=== PATIENT | male | born 1945 | race Caucasian/White ===

== ENCOUNTER 2020-07-26 12:42 | Inpatient (IN) | payer MEDICARE ==
[~2020-07-26] VITALS: Ht 177.8 cm; Wt 96.5 kg
[2020-07-26 15:30] VITALS: BP 150/68
[2020-07-26] MEDS ORDERED: NS 500 ML IV ONE (16:00)
[2020-07-26] MEDS ORDERED: MOM 30ML SUSPENSION UDC PO PRN (16:00)
--- OUTSIDE RECORDS SUMMARY | 2020-07-26 16:09 | CCD | Continuity of Care Document ---
Author Author [facility] Organization Unknown Address [address] [place] [address] Phone [phone] Care Team Providers Care Mental Health Orderly Name Role Phone GARRETT [facility] AUTM [phone] Social History Type Date Description Comments Sex Unknown Medications Active Medications SIG Qnty Indications Ordering Provide r Date Flecainide Acetate 100mg Tablets [facility] Atorvastatin Calcium 20mg Tablets [facility] Losartan Potassium 50mg Tablets [facility] Pantoprazole Sodium 40mg Tablets [facility] Enoxaparin Sodium 80mg/0.8ML Solution [facility] Eliquis 5mg Tablets [facility] Metoprolol Succinate ER 25mg Tablets ER 24HR [facility] 0 Medications Administered in Office Medication SIG Qnty Indications Ordering Provider Date Technetium TC 99M Sestamibi Injection [facility] 08/06/2018 Adminstraton Fee Injection Kvng Boggs 04/14/2008 Immunizations CPT Code Status Date Vaccine Lot # [id number] Given 04/14/2008 Pneumococcal Vac ([id number]) Procedures Date Code Description Status 07/20/2020 84732 Program Pacer Dual Lead Complete d 04/02/2020 81025 Program Pacer Dual Lead Complete d 02/17/2020 87941 injection subq/im Completed Encounters Type Date Location Provider Dx Diagnosis Office Visit 04/02/2020 1:[facility] I11.9 Hypertensive heart disease without heart failure E78.5 Hyperlipidemia, unspecified I49.5 Sick sinus syndrome Z95.0 Presence of cardiac pacemake r Assessments Date Code Description Provider 07/20/2020 I49.5 Sick sinus syndrome [facility] 07/20/2020 Z95.0 Presence of cardiac pacemaker Alanis [facility] 04/02/2020 I11.9 Hypertensive heart disease witho ut heart failure [facility] 04/02/2020 E78.5 Hyperlipidemia, unspecified Kirit [facility] 04/02/2020 I49.5 Sick sinus syndrome [facility] 04/02/2020 Z95.0 Presence of cardiac pacemaker [facility] 02/17/2020 I48.0 Paroxysmal atrial fibrillation Broderick [facility] Plan of Treatment Future Appointment(s):* 10/22/2020 3:00 pm - Garrett [facility] at [facility]
--- OUTSIDE RECORDS SUMMARY | 2020-07-26 16:09 | CCD | Continuity of Care Document ---
Author Author Santos [facility] Organization Unknown Address [address] [place] [address] [place] [address] Phone [phone] Care Team Providers Care Survey Research Associate Name Role Phone Mirza. Bruno Villanueva AUTM [phone] Efrain Olga Publi AUTM [phone] Problems Description No Information Available Social History Type Date Description Comments Sex Unknown Allergies, Adverse Reactions, Alerts Description No Information Available Medications Description No Information Available Immunizations Description No Information Available Vital Signs Description No Information Available Results Description No Information Available Procedures Description No Information Available Medical Devices Description No Information Available Encounters Description No Information Available Assessments Date Code Description Provider 05/08/2020 Z20.828 Contact with and (foster spected) exposure to other viral communicable diseases MADI Patterson 04/27/2020 Z20.828 Contact with and (foster spected) exposure to other viral communicable diseases MADI Patterson Plan of Treatment No Information Available Functional Status Description No Information Available Mental Status Description No Information Available Referrals Description No Information Available
--- OUTSIDE RECORDS SUMMARY | 2020-07-26 16:09 | CCD | Continuity of Care Document ---
Author Author [facility] Organization Unknown Address [address] [place] [address] Phone [phone] Care Team Providers Care Chief Mate Name Role Phone GARRETT [facility] AUTM [phone] Social History Type Date Description Comments Sex Unknown Medications Active Medications SIG Qnty Indications Ordering Provide r Date Flecainide Acetate 100mg Tablets [facility] Atorvastatin Calcium 20mg Tablets [facility] Losartan Potassium 50mg Tablets [facility] Pantoprazole Sodium 40mg Tablets [facility] Enoxaparin Sodium 80mg/0.8ML Solution [facility] Eliquis 5mg Tablets [facility] Metoprolol Succinate ER 25mg Tablets ER 24HR [facility] 0 Medications Administered in Office Medication SIG Qnty Indications Ordering Provider Date Technetium TC 99M Sestamibi Injection [facility] 08/06/2018 Adminstraton Fee Injection Kvng Boggs 04/14/2008 Immunizations CPT Code Status Date Vaccine Lot # [id number] Given 04/14/2008 Pneumococcal Vac ([id number]) Procedures Date Code Description Status 04/02/2020 49002 Program Pacer Dual Lead Complete d 02/17/2020 92731 injection subq/im Completed Encounters Type Date Location Provider Dx Diagnosis Office Visit 04/02/2020 1:30p [facility] I11.9 Hypertensive heart disease without heart failure E78.5 Hyperlipidemia, unspecified I49.5 Sick sinus syndrome Z95.0 Presence of cardiac pacemake r Assessments Date Code Description Provider 04/02/2020 I11.9 Hypertensive heart disease witho ut heart failure [facility] 04/02/2020 E78.5 Hyperlipidemia, unspecified Kirit [facility] 04/02/2020 I49.5 Sick sinus syndrome [facility] 04/02/2020 Z95.0 Presence of cardiac pacemaker Alanis [facility] 02/17/2020 I48.0 Paroxysmal atrial fibrillation Broderick [facility]
--- OUTSIDE RECORDS SUMMARY | 2020-07-26 16:09 | CCD | Continuity of Care Document ---
Author Author Santos [facility] Organization Unknown Address [address] [place] [address] Phone [phone] Care Team Providers Care Manager Pediatric Name Role Phone Mirza. Bruno Villanueva AUTM [phone] Efrain Olga Publi AUTM [phone] Problems Description No Information Available Social History Type Date Description Comments Sex Unknown Allergies, Adverse Reactions, Alerts Description No Information Available Medications Description No Information Available Immunizations Description No Information Available Vital Signs Description No Information Available Results Description No Information Available Procedures Description No Information Available Medical Devices Description No Information Available Encounters Description No Information Available Assessments Date Code Description Provider 04/27/2020 Z20.828 Contact with and (foster spected) exposure to other viral communicable diseases MADI Patterson Plan of Treatment No Information Available Functional Status Description No Information Available Mental Status Description No Information Available Referrals Description No Information Available
--- OUTSIDE RECORDS SUMMARY | 2020-07-26 16:09 | CCD | Continuity of Care Document ---
Author Author Santos [facility]NO Organization Unknown Address [address] [place] [address] [place] [address] Phone [phone] Care Team Providers Care Finisher Polisher Name Role Phone Mirza. Bruno Villanueva AUTM [phone] Efrain Olga Publi AUTM [phone] Problems Description No Information Available Social History [...]
--- OUTSIDE RECORDS SUMMARY | 2020-07-26 16:09 | CCD | Continuity of Care Document ---
Author Author Santos [facility] Organization Unknown Address [address] [place] [address] [place] [address] Phone [phone] Care Team Providers Care Sales Management Intern Name Role Phone Mirza. Bruno Villanueva AUTM [phone] Efrain Espinoza Publi AUTM [phone] Problems Description No Information Available Social History Type Date Description Comments Sex Unknown Allergies, Adverse Reactions, Alerts Description No Information Available Medications Description No Information Available Immunizations Description No Information Available Vital Signs Description No Information Available Results Description No Information Available Procedures Description No Information Available Medical Devices Description No Information Available Encounters Description No Information Available Assessments Description No Information Available Plan of Treatment No Information Available Functional Status Description No Information Available Mental Status Description No Information Available Referrals Description No Information Available
--- OUTSIDE RECORDS SUMMARY | 2020-07-26 16:10 | CCD ---
Author Author [facility] Organization [facility] Address Unknown Phone Unavailable Care Team Providers Care Plc Engineer Name Role Phone Hayley LIMON Unavailable Unavailable HECTORTOMMY MD Unavailable Unavailable HECTOR MAQBOFLORES CUELLO MD Unavailable Unavailable HECTOR MAQBOFLORES CUELLO MD Unavailable Unavailable HECTOR MAQBOFLORES CUELLO MD Unavailable Unavailable HECTORKIMBERLYQBOFLORES CUELLO MD Unavailable Unavailable HECTORKIMBERLYQBOFLORES CUELLO MD Unavailable Unavailable HECTOR MAQBOFLORES CUELLO MD Unavailable Unavailable HECTOR MAQBOOL KHUSHBOO MORALES Unavailable Unavailable HECTORMARKBOFLORES CUELLO MD Unavailable Unavailable HECTORMARKBOFLORES CUELLO MD Unavailable Unavailable HECTORKIMBERLYQBOFLORES CUELLO MD Unavailable Unavailable HECTOR MAQBOOL KHUSHBOO MORALES Unavailable Unavailable HECTOR MAQBOFLOERS CUELLO MD Unavailable Unavailable HECTORKIMBERLYQBOFLORES CUELLO MD Unavailable Unavailable HECTORKIMBERLYQBOFLORES CUELLO MD Unavailable Unavailable HECTOR MAQBOOL KHUSHBOO MORALES Unavailable Unavailable HECTOR MAQBOOL KHUSHBOO MORALES Unavailable Unavailable HECTOR MAQBOOL KHUSHBOO MORALES Unavailable Unavailable HECTOR MAQBOFLORES CUELLO MD Unavailable Unavailable HECTOR MAQBOFLORES CUELLO MD Unavailable Unavailable HECTOR MAQBOFLORES CUELLO MD Unavailable Unavailable HECTOR MAQBOFLORES CUELLO MD Unavailable Unavailable HECTOR MAQBOOL KHUSHBOO MORALES Unavailable Unavailable HECTOR MAQBOFLORES CUELLO MD Unavailable Unavailable HECTOR MAQBOOL KHUSHBOO MORALES Unavailable Unavailable HECTOR, MAQBOOL KHUSHBOO MD Unavailable Unavailable HECTOR, MAQBOOL KHUSHBOO MD Unavailable Unavailable HECTOR, MAQBOOL KHUSHBOO MD Unavailable Unavailable HECTOR, MAQBOOL KHUSHBOO MD Unavailable Unavailable HECTOR, MAQBOOL KHUSHBOO MD Unavailable Unavailable HECTOR, MAQBOOL KHUSHBOO MD Unavailable Unavailable HECTOR, MAQBOOL KHUSHBOO MD Unavailable Unavailable HECTOR, MAQBOOL KHUSHBOO MD Unavailable Unavailable HECTOR, MAQBOOL KHUSHBOO MD Unavailable Unavailable HECTOR, MAQBOOL KHUSHBOO MD Unavailable Unavailable HECTOR, MAQBOOL KHUSHBOO MD Unavailable Unavailable HECTOR, MAQBOOL KHUSHBOO MD Unavailable Unavailable HECTOR, MAQBOOL KHUSHBOO MD Unavailable Unavailable HECTOR, MAQBOOL KHUSHBOO MD Unavailable Unavailable HECTOR, MAQBOOL KHUSHBOO MD Unavailable Unavailable HECTOR, MAQBOOL KHUSHBOO MD Unavailable Unavailable HECTOR, MAQBOOL KHUSHBOO MD Unavailable Unavailable HECTOR, MAQBOOL KHUSHBOO MD Unavailable Unavailable HECTOR, MAQBOOL KHUSHBOO MD Unavailable Unavailable HECTOR, MAQBOOL KHUSHBOO MD Unavailable Unavailable HECTOR, MAQBOOL KHUSHBOO MD Unavailable Unavailable HECTOR, MAQBOOL KHUSHBOO MD Unavailable Unavailable HECTOR, MAQBOOL KHUSHBOO MD Unavailable Unavailable HECTOR, MAQBOOL KHUSHBOO MD Unavailable Unavailable HECTOR, MAQBOOL KHUSHBOO MD Unavailable Unavailable HECTOR, MAQBOOL KHUSHBOO MD Unavailable Unavailable HECTOR, MAQBOOL KHUSHBOO MD Unavailable Unavailable HECTOR, MAQBOOL KHUSHBOO MD Unavailable Unavailable HECTOR, MAQBOOL KHUSHBOO MD Unavailable Unavailable HECTOR, MAQBOOL KHUSHBOO MD Unavailable Unavailable HECTOR, MAQBOOL KHUSHBOO MD Unavailable Unavailable HECTOR, MAQBOOL KHUSHBOO MD Unavailable Unavailable HECTOR, MAQBOOL KHUSHBOO MD Unavailable Unavailable HECTOR, MAQBOOL KHUSHBOO MD Unavailable Unavailable HECTOR, MAQBOOL KHUSHBOO MD Unavailable Unavailable HECTOR, MAQBOOL KHUSHBOO MD Unavailable Unavailable HECTOR, MAQBOOL KHUSHBOO MD Unavailable Unavailable HECTOR, MAQBOOL KHUSHBOO MD Unavailable Unavailable HECTOR, MAQBOOL KHUSHBOO MD Unavailable Unavailable HECTOR, MAQBOOL KHUSHBOO MD Unavailable Unavailable HECTOR, MAQBOOL KHUSHBOO MD Unavailable Unavailable HECTOR, MAQBOOL KHUSHBOO MD Unavailable Unavailable HECTOR, MAQBOOL KHUSHBOO MD Unavailable Unavailable HECTOR, MAQBOOL KHUSHBOO MD Unavailable Unavailable HECTOR, MAQBOOL KHUSHBOO MD Unavailable Unavailable HECTOR, MAQBOOL KHUSHBOO MD Unavailable Unavailable HECTOR, MAQBOOL KHUSHBOO MD Unavailable Unavailable HECTOR, MAQBOOL KHUSHBOO MD Unavailable Unavailable HECTOR, MAQBOOL KHUSHBOO MD Unavailable Unavailable OBEN, T CHIP MD Unavailable Unavailable OBEN, T CHIP MD Unavailable Unavailable OBEN, T CHIP MD Unavailable Unavailable OBEN, T CHIP MD Unavailable Unavailable OBEN, T CHIP MD Unavailable Unavailable OBEN, T CHIP MD Unavailable Unavailable OBEN, T CHIP MD Unavailable Unavailable OBEN, T CHIP MD Unavailable Unavailable OBEN, T CHIP MD Unavailable Unavailable OBEN, T CHIP MD Unavailable Unavailable OBEN, T CHIP MD Unavailable Unavailable OBEN, T CHIP MD Unavailable Unavailable OBEN, T CHIP MD Unavailable Unavailable OBEN, T CHIP MD Unavailable Unavailable OBEN, T CHIP MD Unavailable Unavailable OBEN, T CHIP MD Unavailable Unavailable OBEN, T CHIP MD Unavailable Unavailable OBEN, T CHIP MD Unavailable Unavailable OBEN, T CHIP MD Unavailable Unavailable OBEN, T CHIP MD Unavailable Unavailable OBEN, T CHIP MD Unavailable Unavailable OBEN, T CHIP MD Unavailable Unavailable OBEN, T CHIP MD Unavailable Unavailable OBEN, T CHIP MD Unavailable Unavailable OBEN, T CHIP MD Unavailable Unavailable OBEN, T CHIP MD Unavailable Unavailable OBEN, T CHIP MD Unavailable Unavailable OBEN, T CHIP MD Unavailable Unavailable OBEN, T CHIP MD Unavailable Unavailable OBEN, T CHIP MD Unavailable Unavailable OBEN, T CHIP MD Unavailable Unavailable OBEN, T CHIP MD Unavailable Unavailable OBEN, T CHIP MD Unavailable Unavailable OBEN, T CHIP MD Unavailable Unavailable OBEN, T CHIP MD Unavailable Unavailable OBEN, T CHIP MD Unavailable Unavailable OBEN, T CHIP MD Unavailable Unavailable OBEN, T CHIP MD Unavailable Unavailable OBEN, T CHIP MD Unavailable Unavailable OBEN, T CHIP MD Unavailable Unavailable OBEN, T CHIP MD Unavailable Unavailable OBEN, T CHIP MD Unavailable Unavailable OBEN, T CHIP MD Unavailable Unavailable OBEN, T CHIP MD Unavailable Unavailable OBEN, T CHIP MD Unavailable Unavailable OBEN, T CHIP MD Unavailable Unavailable OBEN, T CHIP MD Unavailable Unavailable OBEN, T CHIP MD Unavailable Unavailable OBEN, T CHIP MD Unavailable Unavailable OBEN, T CHIP MD Unavailable Unavailable OBEN, T CHIP MD Unavailable Unavailable OBEN, T CHIP MD Unavailable Unavailable OBEN, T CHIP MD Unavailable Unavailable HECTOR, MAQBOOL KHUSHBOO MD Unavailable Unavailable HECTOR, MAQBOOL KHUSHBOO MD Unavailable Unavailable HECTOR, MAQBOOL KHUSHBOO MD Unavailable Unavailable HECTOR, MAQBOOL KHUSHBOO MD Unavailable Unavailable HECTOR, MAQBOOL KHUSHBOO MD Unavailable Unavailable HECTOR, MAQBOOL KHUSHBOO MD Unavailable Unavailable HECTOR, MAQBOOL KHUSHBOO MD Unavailable Unavailable HECTOR, MAQBOOL KHUSHBOO MD Unavailable Unavailable HECTOR, MAQBOOL KHUSHBOO MD Unavailable Unavailable HECTOR, MAQBOOL KHUSHBOO MD Unavailable Unavailable HECTOR, MAQBOOL KHUSHBOO MD Unavailable Unavailable HECTOR, MAQBOOL KHUSHBOO MD Unavailable Unavailable HECTOR, MAQBOOL KHUSHBOO MD Unavailable Unavailable HECTOR, MAQBOOL KHUSHBOO MD Unavailable Unavailable HECTOR, MAQBOOL KHUSHBOO MD Unavailable Unavailable HECTOR, MAQBOOL KHUSHBOO MD Unavailable Unavailable HECTOR, MAQBOOL KHUSHBOO MD Unavailable Unavailable HECTOR, MAQBOOL KHUSHBOO MD Unavailable Unavailable HECTOR, MAQBOOL KHUSHBOO MD Unavailable Unavailable HECTOR, MAQBOOL KHUSHBOO MD Unavailable Unavailable HECTOR, MAQBOOL KHUSHBOO MD Unavailable Unavailable HECTOR, MAQBOOL KHUSHBOO MD Unavailable Unavailable HECTOR, MAQBOOL KHUSHBOO MD Unavailable Unavailable HECTOR, MAQBOOL KHUSHBOO MD Unavailable Unavailable HECTOR, MAQBOOL KHUSHBOO MD Unavailable Unavailable HECTOR, MAQBOOL KHUSHBOO MD Unavailable Unavailable HECTOR, MAQBOOL KHUSHBOO MD Unavailable Unavailable HECTOR, MAQBOOL KHUSHBOO MD Unavailable Unavailable HECTOR, MAQBOOL KHUSHBOO MD Unavailable Unavailable HECTOR, MAQBOOL KHUSHBOO MD Unavailable Unavailable HECTOR, MAQBOOL KHUSHBOO MD Unavailable Unavailable HECTOR, MAQBOOL KHUSHBOO MD Unavailable Unavailable HECTOR, MAQBOOL KHUSHBOO MD Unavailable Unavailable HECTOR, MAQBOOL KHUSHBOO MD Unavailable Unavailable HECTOR, MAQBOOL KHUSHBOO MD Unavailable Unavailable HECTOR, MAQBOOL KHUSHBOO MD Unavailable Unavailable HECTOR, MAQBOOL KHUSHBOO MD Unavailable Unavailable HECTOR, MAQBOOL KHUSHBOO MD Unavailable Unavailable HECTOR, MAQBOOL KHUSHBOO MD Unavailable Unavailable HECTOR, MAQBOOL KHUSHBOO MD Unavailable Unavailable HECTOR, MAQBOOL KHUSHBOO MD Unavailable Unavailable HECTOR, MAQBOOL KHUSHBOO MD Unavailable Unavailable HECTOR, MAQBOOL KHUSHBOO MD Unavailable Unavailable HECTOR, MAQBOOL KHUSHBOO MD Unavailable Unavailable HECTOR, MAQBOOL KHUSHBOO MD Unavailable Unavailable HECTOR, MAQBOOL KHUSHBOO MD Unavailable Unavailable HECTOR, MAQBOOL KHUSHBOO MD Unavailable Unavailable HECTOR, MAQBOOL KHUSHBOO MD Unavailable Unavailable HECTOR, MAQBOOL KHUSHBOO MD Unavailable Unavailable HECTOR, MAQBOOL KHUSHBOO MD Unavailable Unavailable HECTOR, MAQBOOL KHUSHBOO MD Unavailable Unavailable HECTOR, MAQBOOL KHUSHBOO MD Unavailable Unavailable HECTOR, MAQBOOL KHUSHBOO MD Unavailable Unavailable HECTOR, MAQBOOL KHUSHBOO MD Unavailable Unavailable HECTOR, MAQBOOL KHUSHBOO MD Unavailable Unavailable HECTOR, MAQBOOL KHUSHBOO MD Unavailable Unavailable HECTOR, MAQBOOL KHUSHBOO MD Unavailable Unavailable HECTOR, MAQBOOL KHUSHBOO MD Unavailable Unavailable HECTOR, MAQBOOL KHUSHBOO MD Unavailable Unavailable HECTOR, MAQBOOL KHUSHBOO MD Unavailable Unavailable HECTOR, MAQBOOL KHUSHBOO MD Unavailable Unavailable HECTOR, MAQBOOL KHUSHBOO MD Unavailable Unavailable HECTOR, MAQBOOL KHUSHBOO MD Unavailable Unavailable HECTOR, MAQBOOL KHUSHBOO MD Unavailable Unavailable HECTOR, MAQBOOL KHUSHBOO MD Unavailable Unavailable HECTOR, MAQBOOL KHUSHBOO MD Unavailable Unavailable HECTOR, MAQBOOL KHUSHBOO MD Unavailable Unavailable HECTOR, MAQBOOL KHUSHBOO MD Unavailable Unavailable HECTOR, MAQBOOL KHUSHBOO MD Unavailable Unavailable HECTOR, MAQBOOL KHUSHBOO MD Unavailable Unavailable HECTOR, MAQBOOL KHUSHBOO MD Unavailable Unavailable HECTOR, MAQBOOL KHUSHBOO MD Unavailable Unavailable HECTOR, MAQBOOL KHUSHBOO MD Unavailable Unavailable HECTOR, MAQBOOL KHUSHBOO MD Unavailable Unavailable LISANDRO, S AYMAN MD Unavailable Unavailable LISANDRO, S AYMAN MD Unavailable Unavailable LISANDRO, S AYMAN MD Unavailable Unavailable LISANDRO, S AYMAN MD Unavailable Unavailable LISANDRO, S AYMAN MD Unavailable Unavailable LISANDRO, S AYMAN MD Unavailable Unavailable LISANDRO, S AYMAN MD Unavailable Unavailable LISANDRO, S AYMAN MD Unavailable Unavailable LISANDRO, S AYMAN MD Unavailable Unavailable LISANDRO, S AYMAN MD Unavailable Unavailable LISANDRO, S AYMAN MD Unavailable Unavailable LISANDRO, S AYMAN MD Unavailable Unavailable LISANDRO, S AYMAN MD Unavailable Unavailable LISANDRO S AYMAN MD Unavailable Unavailable LISANDRO S AYMAN MD Unavailable Unavailable LISANDRO S AYMAN MD Unavailable Unavailable LISANDRO S AYMAN MD Unavailable Unavailable LISANDRO, S AYMAN MD Unavailable Unavailable LISANDRO S AYMAN MD Unavailable Unavailable LISANDRO S AYMAN MD Unavailable Unavailable LISANDRO S AYMAN MD Unavailable Unavailable LISANDRO S AYMAN MD Unavailable Unavailable LISANDRO S AYMAN MD Unavailable Unavailable LISANDRO, S AYMAN MD Unavailable Unavailable LISANDRO S AYMAN MD Unavailable Unavailable LISANDRO S AYMAN MD Unavailable Unavailable LISANDRO S AYMAN MD Unavailable Unavailable LISANDRO, S AYMAN MD Unavailable Unavailable LISANDRO, S AYMAN MD Unavailable Unavailable LISANDRO, S AYMAN MD Unavailable Unavailable LISANDRO, S AYMAN MD Unavailable Unavailable LISANDRO, S AYMAN MD Unavailable Unavailable LISANDRO, S AYMAN MD Unavailable Unavailable LISANDRO, S AYMAN MD Unavailable Unavailable LISANDRO, S AYMAN MD Unavailable Unavailable LISANDRO, S AYMAN MD Unavailable Unavailable LISANDRO, S AYMAN MD Unavailable Unavailable LISANDRO, S AYMAN MD Unavailable Unavailable LISANDRO, S AYMAN MD Unavailable Unavailable LISANDRO, S AYMAN MD Unavailable Unavailable LISANDRO, S AYMAN MD Unavailable Unavailable LISANDRO, S AYMAN MD Unavailable Unavailable LISANDRO, S AYMAN MD Unavailable Unavailable LISANDRO, S AYMAN MD Unavailable Unavailable LISANDRO, S AYMAN MD Unavailable Unavailable LISANDRO, S AYMAN MD Unavailable Unavailable LISANDRO, S AYMAN MD Unavailable Unavailable LISANDRO, S AYMAN MD Unavailable Unavailable LISANDRO, S AYMAN MD Unavailable Unavailable LISANDRO, S AYMAN MD Unavailable Unavailable LISANDRO, S AYMAN MD Unavailable Unavailable LISANDRO, S AYMAN MD Unavailable Unavailable LISANDRO, S AYMAN MD Unavailable Unavailable LISANDRO, S AYMAN MD Unavailable Unavailable LISANDRO, S AYMAN MD Unavailable Unavailable LISANDRO, S AYMAN MD Unavailable Unavailable LISANDRO, S AYMAN MD Unavailable Unavailable LISANDRO, S AYMAN MD Unavailable Unavailable LISANDRO, S AYMAN MD Unavailable Unavailable LISANDRO, S AYMAN MD Unavailable Unavailable LISANDRO, S AYMAN MD Unavailable Unavailable LISANDRO, S AYMAN MD Unavailable Unavailable LISANDRO, S AYMAN MD Unavailable Unavailable LISANDRO, S AYMAN MD Unavailable Unavailable LISANDRO, S AYMAN MD Unavailable Unavailable LISANDRO, S AYMAN MD Unavailable Unavailable LISANDRO, S AYMAN MD Unavailable Unavailable LISANDRO, S AYMAN MD Unavailable Unavailable LISANDRO, S AYMAN MD Unavailable Unavailable LISANDRO, S AYMAN MD Unavailable Unavailable LISANDRO, S AYMAN MD Unavailable Unavailable LISANDRO, S AYMAN MD Unavailable Unavailable LISANDRO, S AYMAN MD Unavailable Unavailable LISANDRO, S AYMAN MD Unavailable Unavailable LISANDRO, S AYMAN MD Unavailable Unavailable LISANDRO, S AYMAN MD Unavailable Unavailable LISANDRO, S AYMAN MD Unavailable Unavailable LISANDRO, S AYMAN MD Unavailable Unavailable LISANDRO, S AYMAN MD Unavailable Unavailable LISANDRO, S AYMAN MD Unavailable Unavailable LISANDRO, S AYMAN MD Unavailable Unavailable LISANDRO, S AYMAN MD Unavailable Unavailable Maring, Phillip PA Unavailable Unavailable Maring, Phillip PA Unavailable Unavailable Maring, Phillpi PA Unavailable Unavailable Maring, Phillip PA Unavailable Unavailable Maring, Phillip PA Unavailable Unavailable Maring, Phillip PA Unavailable Unavailable Maring, Phillip PA Unavailable Unavailable Maring, Phillip PA Unavailable Unavailable Maring, Phillip PA Unavailable Unavailable Maring, Phillip PA Unavailable Unavailable Maring, Phillip PA Unavailable Unavailable Maring, Phillip PA Unavailable Unavailable Maring, Phillip PA Unavailable Unavailable Maring, Phillip PA Unavailable Unavailable Re-disclosure Warning The records that you are about to access may contain information from federally-assisted alcohol or drug abuse programs. If such information is present, then the following federally mandated warning applies: This information has been disclosed to you from records protected by federal confidentiality rules (42 CFR part 2). The federal rules prohibit you from making any further disclosure of this information unless further disclosure is expressly permitted by the written consent of the person to whom it pertains or as otherwise permitted by 42 CFR part 2. A general authorization for the release of medical or other information is NOT sufficient for this purpose. The Federal rules restrict any use of the information to criminally investigate or prosecute any alcohol or drug abuse patient.The records that you are about to access may contain highly sensitive health information, the redisclosure of which is protected by Article 27-F of the [facility] Public Health law. If you continue you may have access to information: Regarding HIV / AIDS; Provided by facilities licensed or operated by the [facility] Office of Mental Health; or Provided by the [facility] Office for People With Developmental Disabilities. If such information is present, then the following [facility] mandated warning applies: This information has been disclosed to you from confidential records which are protected by state law. State law prohibits you from making any further disclosure of this information without the specific written consent of the person to whom it pertains, or as otherwise permitted by law. Any unauthorized further disclosure in violation of state law may result in a fine or chcf sentence or both. A general authorization for the release of medical or other information is NOT sufficient authorization for further disc losure. Allergies and Adverse Reactions Type Description Substance Reaction Status Data Source(s ) No Known Drug Allergies No Known Drug Allergies [facility] ENVIRONMENTAL pollen pollen [facility] Family History Family Member Name Family Member Gender Family Member Status Date o f Status Description Data Source(s) Unknown Male Problem [facility] ([facility]) Encounters Encounter Providers Location Date Indications Data Source(s ) Emergency Attender: RUBY GORDONECCOConsultant: KHUSHBOO DUNCAN MD 07/26/2020 09:09:00 AM EST - 07/26/2020 02:45:00 PM [facility] Patient discharged. Outpatient Attender: Phillip BARRAZA 07/21/19 05:43:42 PM EST - 07/21/2020 06:35:51 PM EST [facility] ([facility] ) Outpatient Attender: CHIP ZACARIAS MDConsultant: KHUSHBOO VILLANUEVA MD 04/10/2020 08:12:00 AM EST - 04/10/2020 08:12:00 AM [facility] Outpatient Attender: KHUSHBOO VILLANUEVA MD Medical [facility] 04/02 01:30:00 PM EDT [facility] ([facility]ushboo Villanueva MD) Outpatient Attender: KHUSHBOO VILLANUEVA MDConsultant: KHUSHBOO Hadley MD 09/29/2019 03:28:00 PM EDT - 09/29/2019 04:28:00 PM EDT [facility] Inpatient<td>08/17/2018 - 08/18/2018</td ><td ID="[id number]">Hospital Encounter</td><td><paragraph>D[facility] Cardiovascular Surgery Unit</paragraph><paragraph>[address]</paragraph><paragraph>[place] [address]</paragraph><paragraph>[phone]</paragraph></td><td><paragraph styleCode="Bold">Betty Szymanski MD</paragraph><paragraph>[address]paragraph><paragraph>[address]</paragraph><paragraph>[place] [address]</paragraph><paragraph>[phone]</paragraph><paragraph> </paragraph></td><td ID="[id number]">Unstable angina (Primary Dx); <b r/>Essential hypertension</td> Attender: BETTY SZYMANSKI MDAdmitter: ANA SZYMANSKI MD [id number] 08/17/2018 12:00:00 AM EDT - 08/18/2018 05:44:00 PM EDT GERD (gastroesophageal reflux disease)HTN (hypertension)History of permanent cardiac pacemaker placementTypical atrial flutterEssential hypertensionUnstable angina [facility] GERD (gastroesophageal reflux disease) HTN (hypertension) History of permanent cardiac pacemaker p lacement Typical atrial flutter Essential hypertension Unstable angina Unstable angina (Primary Dx); Essential hypertension Medications Medication Brand Name Start Date Product Form Dose Route Admi nistrative Instructions Pharmacy Instructions Status Indications Reaction Description Data Source(s) 10 mg 04/19/2020 12:00:00 AM EST tablet extended release 24hr 30 TAKE ONE TABLET BY MOUTH EVERY DAY TAKE ONE TABLET BY MOUTH EVERY DAY SOLD: 04/20/2020 [facility] Insurance Providers Payer name Policy type / Coverage type Policy ID Covered constitution party ID Covered constitution party's relationship to land Policy Land Plan Information MEDICARE COMPLETE [id number] SP [id number] [employer] [facility] MEDICARE O/P [id number] 18 [id number] MEDICARE COMPLETE [id number] SP [id number] [facility] Commercial Insurance Co. [id number] Self [id number] [facility] [place] [id number] 18 [id number] [facility] MEDICARE [id number] Mary [id number] [facility] [employer] [place] [id number] 18 [id number] [employer] [facility] MEDICARE O/P [id number] 18 [id number] [facility] Secure Horizons MCR Commercial [id number] Self [id number] [facility] [employer] [place] [id number] 18 [id number] [employer]/[facility] MEDICARE I/P [id number] 18 [id number] [employer]/UN MEDICARE I/P [id number] 18 [id number] MEDICARE PART A -I/P [id number] 18 [id number] [facility] MEDICARE [id number] Mary [id number] [facility] MEDICARE PI PI MEDICARE COMPLETE [id number] SP [id number] Problems, Conditions, and Diagnoses Code Display Name Description Problem Type Effective Dates Data Source(s) 42791476 Urgent desire to urinate Urgent desire to urinate Prob arina 04/10/2020 12:00:00 AM EST [facility] ([facility]) N390 Urinary tract infection, site not specif ied Urinary tract infection, site not specified Diagnosis 09/29/2019 03:28:00 PM EDT [facility] E039 Hypothyroidism, unspecified Hypothyroidism, unspecifie d Diagnosis 09/29/2019 03:28:00 PM EDT [facility] N400 Benign prostatic hyperplasia without low er urinary tract symptoms Benign prostatic hyperplasia without lower urinary tract symptoms Diagnosis 09/29/2019 03:28:00 PM EDT [facility] D649 Anemia, unspecified Anemia, unspecified Diagnosis 0 09/29/2019 03:28:00 PM EDT [facility] E785 Hyperlipidemia, unspecified Hyperlipidemia, unspecifie d Diagnosis 09/29/2019 03:28:00 PM EDT [facility] E119 Type 2 diabetes mellitus without complic ations Type 2 diabetes mellitus without complications Diagnosis 09/29/2019 03:28:00 PM EDT [facility] Surgeries/Procedures Procedure Description Date Indications Data Source(s) PROGRAM EVAL IMPLANTABLE IN [facility] LD PACER 2020 12:00:00 AM EST [facility] (Khushboo Villanueva MD) PROGRAM EVAL IMPLANTABLE IN [facility] DUAL LD PACER 2019 12:00:00 AM EDT [facility] (Khushboo Villanueva MD) THERAPEUTIC PROPHYLACTIC/DX INJECTION SUBQ/IM 02/17/20 12:00:00 AM EDT [facility] (Khushboo Villanueva MD) Results ID Date Data Source [id number] 07/26/2020 01:15:00 PM [facility] Name Value Range Interpretation Code Description Data Zuleyka rce(s) Supporting Document(s) [facility] COLOR apple NORMAL: Yellow [facility] CLARITY clear NORMAL: Clear [facility] Specific gravity of Urine by Test strip 1.020 1.001 - 1.030 [facility] pH 5 5 - 9 [facility] al Glucose [Mass/volume] in Urine by Test strip NORM NORMAL: Negat young [facility] Bilirubin.total [Presence] in Urine by Test strip NEG NORMAL: Negative [facility] Ketones [Presence] in Urine by Test strip 50 NORMAL: Negative A [facility] Protein [Mass/volume] in Urine by Test strip 30 NORMAL: Negat young [facility] Nitrite [Presence] in Urine by Test strip NEG NORMAL: Negative [facility] BLOOD 25 NORMAL: Negative [facility] Leukocyte esterase [Presence] in Urine by Test strip NEG ENOC L: Negative [facility] Urobilinogen [Mass/volume] in Urine by Test strip 4 less calvin n 1.0 mg/dL [facility] MICROSCOPIC See Below [facility] ital WBC 1 - 3 NORMAL: NONE SEEN [facility] Erythrocytes [#/volume] in Urine by Test strip 1 - 3 NORMAL: NON E SEEN [facility] EPITHELIAL FEW NORMAL: NONE SEEN [facility] Bacteria [Presence] in Urine sediment by Light microscopy Tr carmen NORMAL: NONE SEEN [facility] ID Date Data Source [id number] 07/26/2020 09:18:00 AM EST [facility] (Khushboo Villanueva MD) Name Value Range Interpretation Code Description Data Zuleyka rce(s) Supporting Document(s) Laboratory test finding (navigational concept) Laboratory test result [facility] (Khushboo Villanueva MD) Laboratory test finding (navigational concept) Laboratory test result [facility] (Khushboo Villanueva MD) Laboratory test finding (navigational concept) Laboratory test result [facility] (Khushboo Villanueva MD) Laboratory test finding (navigational concept) Laboratory test result [facility] (Khushboo Villanueva MD) <content>PROCEDURAL CONTROL VALID</con tent>
<content>KIT LOT # _[id number] 07/26/20 .</content>
<content>KIT EXP DATE _06.29.21 07/26/20. .</content>
<content>The Influenza A & B assay is a rapid molecular in vitro diagnostic test</content>
<content> utilizing an isothermal nucleic acid amplification technology for the</content>
<content>qualitative detection of influenza A and B viral RNA.</content>
<content>Negative results do not preclude influenza virus infection and should not be</content>
<content>used as the sole basis for diagnosis, treatment or other patient management</content>
<content>d ecisions.</content>
<content></content> ID Date Data Source [id number] 07/26/2020 10:47:00 AM [facility] Name Value Range Interpretation Code Description Data Zuleyka rce(s) Supporting Document(s) Influenza virus A Ag [Presence] in Nasopharynx by Immuno[facility] y NEGATIVE NORMAL: NEGATIVE [facility] Influenza virus B Ag [Presence] in Nasopharynx by Immunoassa y NEGATIVE NORMAL: NEGATIVE [facility] NEGATIVENEGATIVE PROCEDURAL CO NTROL VALID KIT LOT # _[id number] 07/26/20.1047. . KIT EXP DATE _06.29.21 07/26/20.1047. .The Influenza A & B assay is a rapid molecular in vitro diagnostic testutilizing an isothermal nucleic acid amplification technology for thequalitative detection of influenza A and B viral RNA.Negative results do not preclude influenza virus infection and should not beused as the sole basis for diagnosis, treatment or other patient managementdecisions. ID Date Data Source [id number] 07/26/2020 12:37:00 PM [facility] Name Value Range Interpretation Code Description Data Zuleyka rce(s) Supporting Document(s) Lactate dehydrogenase [Enzymatic activity/volume] in Serum o r Plasma 366 U/L 135 - 225 H [facility] ID Date Data Source [id number] 07/26/2020 09:15:00 AM EST [facility] (Khushboo Villanueva MD) Name Value Range Interpretation Code Description Data Zuleyka rce(s) Supporting Document(s) Laboratory test finding (navigational concept) Laboratory test result [facility] (Khushboo Villanueva MD) COMPREHENSIVE METABOLIC PANEL Laboratory test finding (navigational concept) 96 meq/L 98-107 Below low normal [facility] (Khushboo Villanueva MD) Laboratory test finding (navigational concept) 134 meq/L 134-153 [facility] (Khushboo Villanueva MD) Laboratory test finding (navigational concept) 4.3 meq/L 3.6-5.0 [facility] (Khushboo Villanueva MD) Laboratory test finding (navigational concept) 127 mg/dL 7 0-99 Above high normal [facility] (Khushboo Villanueva MD) Laboratory test finding (navigational concept) 26 meq/L 22-30 [facility] (Khushboo Villanueva MD) Laboratory test finding (navigational concept) 20 mg/dL 7-21 [facility] (Khushboo Villanueva MD) Laboratory test finding (navigational concept) 1.0 mg/dL 0.7-1.5 [facility] (Khushboo Villanueva MD) Laboratory test finding (navigational concept) 6.1 g/dL 6 .3-8.2 Below low normal [facility] (Khushboo Villanueva MD) Laboratory test finding (navigational concept) 20 8-27 [facility] (Khushboo Villanueva MD) Laboratory test finding (navigational concept) 2.5 GM/DL 2.4-3.2 [facility] (Khushboo Villanueva MD) Laboratory test finding (navigational concept) 3.6 g/dL 3 .9-5.0 Below low normal [facility] (Khushboo Villanueva MD) Laboratory test finding (navigational concept) 1.4 0.8-2.0 [facility] (Khushboo Villanueva MD) Laboratory test finding (navigational concept) 8.6 mg/dL 8.4-10.2 [facility] (Khushboo Villanueva MD) Laboratory test finding (navigational concept) 1.4 mg/dL 0 .2-1.3 Above high normal [facility] (Khushboo Villanueva MD) Laboratory test finding (navigational concept) 72 U/L 38-126 [facility] (Khushboo Villanueva MD) Laboratory test finding (navigational concept) 41 U/L 5-40 Above high normal [facility] (Khushboo Villanueva MD) Laboratory test finding (navigational concept) 22 U/L 7-56 [facility] (Khushboo Villanueva MD) Laboratory test finding (navigational concept) Laboratory test result [facility] (Khushboo Villanueva MD) Laboratory test finding (navigational concept) 74 yrs [facility] (Khushboo Villanueva MD) Laboratory test finding (navigational concept) 12.0 mmol/L 8.0-16.0 [facility] (Khushboo Villanueva MD) Laboratory test finding (navigational concept) Laboratory test result [facility] (Khushboo Villanueva MD) Male GFR Interprentation 20-49 yrs >60 mL/min Normal 50-59 yrs >56 mL/min Normal 60-69 yrs >49 mL/min Normal 70-79yrs >42 mL/min Normal 80 and above >35 mL/min Normal Female GFR Interpretation 20-39 yrs >60 mL/min Normal 40-49 yrs >58 mL/min Normal 50-59 yrs >51 mL/min Normal 60-69 yrs >45 mL/min Normal 70-79 yrs >39 mL/min Normal 80 and above >32 mL/min Normal ID Date Data Source [id number] 07/26/2020 09:15:00 AM EST [facility] (Khushboo Villanueva MD) Name Value Range Interpretation Code Description Data Zuleyka rce(s) Supporting Document(s) Troponin T.cardiac [Mass/volume] in Serum or Plasma Laborato ry test result 0.00-0.10 [facility] (Khushboo Villanueva MD) TROPONIN T 0.1 ng/ml Recommended as the clinical th reshold value for Troponin T. ID Date Data Source [id number] 07/26/2020 09:15:00 AM EST [facility] (Khushboo Villanueva MD) Name Value Range Interpretation Code Description Data Zuleyka rce(s) Supporting Document(s) Laboratory test finding (navigational concept) 17.5 s 1 1.0-15.5 Above high normal [facility] (Khushboo Villanueva MD) Laboratory test finding (navigational concept) 1.36 0 .93-1.23 Above high normal [facility] (Khushboo Villanueva MD) Laboratory test finding (navigational concept) 43.4 s 2 4.8-36.7 Above high normal [facility] (Khushboo Villanueva MD) \\BLDo\\INR INTERPRETATION\\BLDx\\ Therapeutic range for Coumadin and related oral anticoagulants. -International Normalized Ratio (INR): 2 .0 - 3.0 for Venous Thrombosis, Pulmonary Embolus, Tissue heart valves, Acute NM Atrial Fibrillation, Valvular heart disease and recurrent Systemic Embolism. -International Normalized Ratio (INR): 2 .5 - 3.5 for Mechanical Prosthetic valve. ID Date Data Source [id number] 07/26/2020 09:15:00 AM EST [facility] (Khushboo Villanueva MD) Name Value Range Interpretation Code Description Data Zuleyka rce(s) Supporting Document(s) Fibrin D-dimer [Presence] in Platelet poor plasma Laboratory test result 0.27-0.50 [facility] (Khushboo Villanueva MD) ID Date Data Source [id number] 07/26/2020 09:15:00 AM EST [facility] (Khushboo Villanueva MD) Name Value Range Interpretation Code Description Data Zuleyka rce(s) Supporting Document(s) Laboratory test finding (navigational concept) 6.2 10^3/uL 4.2-11.0 [facility] (Khushboo Villanueva MD) Laboratory test finding (navigational concept) Laboratory test result [facility] (Khushboo Villanueva MD) COMPLETE BLOOD COUNT Laboratory test finding (navigational concept) 4.21 10^6/uL 4 .50-6.30 Below low normal [facility] (Khushboo Villanueva MD) Laboratory test finding (navigational concept) 38.0 % 4 1.0-51.0 Below low normal [facility] (Khushboo Villanueva MD) Laboratory test finding (navigational concept) 13.6 g/dL 1 4.0-16.0 Below low normal [facility] (Khushboo Villanueva MD) Laboratory test finding (navigational concept) 32.3 pg 27.0-34.0 [facility] (Khushboo Villanueva MD) Laboratory test finding (navigational concept) 90.3 fL 80.0-94.0 [facility] (Khushboo Villanueva MD) Laboratory test finding (navigational concept) 11.8 % 11.5-14.8 [facility] (Khushboo Villanueva MD) Laboratory test finding (navigational concept) 35.8 g/dL 31.0-36.0 [facility] (Khushboo Villanueva MD) Laboratory test finding (navigational concept) 174 10^3/uL 150-450 [facility] (Khushboo Villanueva MD) Laboratory test finding (navigational concept) 8.9 fL 7.4-10.4 [facility] (Khushboo Villanueva MD) Laboratory test finding (navigational concept) 85.1 % 3 7.0-80.0 Above high normal [facility] (Khushboo Villanueva MD) Laboratory test finding (navigational concept) 7.7 % 3.0-8.0 [facility] (Khushboo Villanueva MD) Laboratory test finding (navigational concept) 6.3 % 25.0-40 .0 Below low normal [facility] (Khushboo Villanueva MD) Laboratory test finding (navigational concept) 0.2 % 0.0-2.0 [facility] (Khushboo Villanueva MD) Laboratory test finding (navigational concept) 0.2 % 0.0-7.0 [facility] (Khushboo Villanueva MD) Laboratory test finding (navigational concept) 0.5 % 0.0-0.0 Above high normal [facility] (Khushboo Villanueva MD) Laboratory test finding (navigational concept) 0.0 % 0.0-0.0 [facility] (Khushboo Villanueva MD) Laboratory test finding (navigational concept) 5.32 10^3/uL 2.00-6.90 [facility] (Khushboo Villanueva MD) Laboratory test finding (navigational concept) 0.39 10^3/uL 0 .60-3.40 Below low normal [facility] (Khushboo Villanueva MD) Laboratory test finding (navigational concept) 0.01 10^3/uL 0.00-0.70 [facility] (Khushboo Villanueva MD) Laboratory test finding (navigational concept) 0.48 10^3/uL 0.00-0.90 [facility] (Khushboo Villanueva MD) Laboratory test finding (navigational concept) 0.01 10^3/uL 0.00-0.20 [facility] (Khushboo Villanueva MD) Laboratory test finding (navigational concept) 0.03 10^3/uL 0.00-0.10 [facility] (Khushboo Villanueva MD) Laboratory test finding (navigational concept) Laboratory test result [facility] (Khushboo Villanueva MD) Laboratory test finding (navigational concept) 0.00 10^3/uL 0.00-0.00 [facility] (Khushboo Villanueva MD) Laboratory test finding (navigational concept) Laboratory test result [facility] (Khushboo Villanueva MD) ID Date Data Source [id number] 07/26/2020 09:15:00 AM EST [facility] (Khushboo Villanueva MD) Name Value Range Interpretation Code Description Data Zuleyka rce(s) Supporting Document(s) Laboratory test finding (navigational concept) 7.37 7.32-7.43 [facility] (Khushboo Villanueva MD) Laboratory test finding (navigational concept) 46.7 mm/HG 38.0-51.0 [facility] (Khushboo Villanueva MD) Laboratory test finding (navigational concept) 24.4 mm/HG 3 0.0-55.0 Below low normal [facility] (Khushboo Villanueva MD) Laboratory test finding (navigational concept) 26.5 meq/L 22.0-29.0 [facility] (Khushboo Villanueva MD) Laboratory test finding (navigational concept) 27.9 meq/L 22.0-29.0 [facility] (Khushboo Villanueva MD) Laboratory test finding (navigational concept) 0.7 [facility] (Khushboo Villanueva MD) Laboratory test finding (navigational concept) 41.0 % 40.0-85.0 [facility] (Khushboo Villanueva MD) ID Date Data Source [id number] 07/26/2020 09:15:00 AM EST [facility] (Khushboo Villanueva MD) Name Value Range Interpretation Code Description Data Zuleyka rce(s) Supporting Document(s) Lactate [Mass/volume] in Serum or Plasma 2.7 mmol/L 0.2-2.2 Above high normal [facility] (Khushboo Villanueva MD) ID Date Data Source [id number] 07/26/2020 10:29:00 AM EST [facility] Name Value Range Interpretation Code Description Data Zuleyka rce(s) Supporting Document(s) COMPREHENSIVE METABOLIC PANEL [facility] COMPREHENSIVE METABOLIC PANEL Sodium [Moles/volume] in Serum or Plasma 134 mEq/L 134 - 153 [facility] Potassium [Moles/volume] in Serum or Plasma 4.3 mEq/L 3.6 - 5.0 [facility] Chloride [Moles/volume] in Serum or Plasma 96 mEq/L 98 - 107 L [facility] Carbon dioxide, total [Moles/volume] in Serum or Plasma 26 MEQ/L 22 - 30 [facility] Glucose [Mass/volume] in Serum or Plasma 127 MG/DL 70 - 99 H [facility] BUN 20 MG/DL 7 - 21 [facility] Creatinine [Mass/volume] in Serum or Plasma 1.0 MG/DL 0.7 - 1.5 [facility] BUN/CREAT 20 8 - 27 [facility] al Protein [Mass/volume] in Serum or Plasma 6.1 G/DL 6.3 - 8.2 L [facility] Albumin [Mass/volume] in Serum or Plasma 3.6 G/DL 3.9 - 5.0 L [facility] Globulin [Mass/volume] in Serum by calculation 2.5 GM/DL 2.4 - 3.2 [facility] A/G RATIO 1.4 0.8 - 2.0 [facility] Calcium [Mass/volume] in Serum or Plasma 8.6 MG/DL 8.4 - 10.2 [facility] Bilirubin.total [Mass/volume] in Serum or Plasma 1.4 MG/DL 0.2 - 1.3 H [facility] Alkaline phosphatase [Enzymatic activity/volume] in Serum or Plasma 72 U/L 38 - 126 [facility] Aspartate aminotransferase [Enzymatic activity/volume] in Serum or Plasma 41 U/L 5 - 40 H [facility] Alanine aminotransferase [Enzymatic activity/volume] in Seru m or Plasma 22 U/L 7 - 56 [facility] Anion gap 3 in Serum or Plasma 12.0 mmol/L 8.0 - 16.0 [facility] AGE 74 yrs [facility] al NON-AA GFR >60 mL/min [facility] ital AFR AMER GFR >60 mL/min [facility] Male GFR In terprentation 20-49 yrs >60 mL/min Normal 50-59 yrs >56 mL/min Normal 60-69 yrs >49 mL/min Normal 70-79yrs >42 mL/min Normal 80 and above >35 mL/min Normal Female GFR Interpretation 20-39 yrs >60 mL/min Normal 40-49 yrs >58 mL/min Normal 50-59 yrs >51 mL/min Normal 60-69 yrs >45 mL/min Normal 70-79 yrs >39 mL/min Normal 80 and above >32 mL/min Normal ID Date Data Source [id number] 07/26/2020 10:17:00 AM [facility] Name Value Range Interpretation Code Description Data Zuleyka rce(s) Supporting Document(s) TROPONIN T <0.01 NG/ML 0.00 - 0.10 [facility] TROPONIN T0.1 ng/ml Recommended as the c linical threshold value forTroponin T. ID Date Data Source [id number] 07/26/2020 10:07:00 AM [facility] Value Range Interpretation Code Description Data Zuleyka rce(s) Supporting Document(s) Fibrin D-dimer FEU [Mass/volume] in Platelet poor plasma <0. 27 ug/mL 0.27 - 0.50 [facility] ID Date Data Source [id number] 07/26/2020 10:07:00 AM [facility] Value Range Interpretation Code Description Data Zuleyka rce(s) Supporting Document(s) Prothrombin time (PT) 17.5 SECONDS 11.0 - 15.5 H [facility] INR in Platelet poor plasma by Coagulation assay 1.36 0.93 - 1. 23 H [facility] aPTT in Blood by Coagulation assay 43.4 SECONDS 24.8 - 36.7 H [facility] \\BLDo\\INR INTERPRETATION\\BLDx\\ Therapeutic range for Coumadin and related oral anticoagulants. - International Normalized Ratio (INR): 2.0 - 3.0 for Venous Thrombosis, Pulmonary Embolus, Tissue heart valves, Acute NM Atrial Fibrillation, Valvular heart disease and recurrent Systemic Embolism. - International Normalized Ratio (INR): 2.5 - 3.5 for Mechanical Prosthetic valve. ID Date Data Source [id number] 07/26/2020 09:57:00 AM [facility] Value Range Interpretation Code Description Data Zuleyka rce(s) Supporting Document(s) CBC W/AUTOMATED DIFF [facility] COMPLETE BLOOD COUNT Leukocytes [#/volume] in Blood by Automated count 6.2 10^3/uL 4.2 - 1 1.0 [facility] Erythrocytes [#/volume] in Blood by Automated count 4.21 10^6/uL 4. 50 - 6.30 L [facility] Hemoglobin [Mass/volume] in Blood 13.6 g/dL 14.0 - 16.0 L [facility] Hematocrit [Volume Fraction] of Blood by Automated count 38.0 % 4 1.0 - 51.0 L [facility] Erythrocyte mean corpuscular volume [Entitic volume] by Auto mated count 90.3 fL 80.0 - 94.0 [facility] Erythrocyte mean corpuscular hemoglobin [Entitic mass] by Automated count 32.3 pg 27.0 - 34.0 [facility] Erythrocyte mean corpuscular hemoglobin concentration [Mass/volume] by Automated count 35.8 g/dL 31.0 - 36.0 [facility] Erythrocyte distribution width [Ratio] by Automated count 11.8 % 11.5 - 14.8 [facility] Platelets [#/volume] in Blood by Automated count 174 10^3/uL 150 - 45 0 [facility] Platelet mean volume [Entitic volume] in Blood by Automated count 8.9 fL 7.4 - 10.4 [facility] Neutrophils/100 leukocytes in Blood by Automated count 85.1 % 37. 0 - 80.0 H [facility] Lymphocytes/100 leukocytes in Blood by Manual count 6.3 % 25.0 - 40.0 L [facility] Monocytes/100 leukocytes in Blood by Automated count 7.7 % 3.0 - 8.0 [facility] Eosinophils/100 leukocytes in Blood by Automated count 0.2 % 0.0 - 7.0 [facility] Basophils/100 leukocytes in Blood by Automated count 0.2 % 0.0 - 2.0 [facility] %IG 0.5 % 0.0 - 0.0 [facility] %NRBC 0.0 % 0.0 - 0.0 [facility] al Neutrophils [#/volume] in Blood by Automated count 5.32 10^3/uL 2.00 - 6.90 [facility] Lymphocytes [#/volume] in Blood by Automated count 0.39 10^3/uL 0.60 - 3.40 L [facility] Monocytes [#/volume] in Blood by Automated count 0.48 10^3/uL 0.00 - 0.90 [facility] Eosinophils [#/volume] in Blood by Automated count 0.01 10^3/uL 0.00 - 0.70 [facility] Basophils [#/volume] in Blood by Automated count 0.01 10^3/uL 0.00 - 0.20 [facility] #IG 0.03 10^3/uL 0.00 - 0.10 [facility] #NRBC 0.00 10^3/uL 0.00 - 0.00 [facility] MANUAL DIFF NOT INDICATED [facility] RBC MORPH NOT INDICATED [facility] spital ID Date Data Source [id number] 07/26/2020 09:53:00 AM EST [facility] Name Value Range Interpretation Code Description Data Zuleyka rce(s) Supporting Document(s) pH of Serum or Plasma 7.37 7.32 - 7.43 [facility] pCO2 V 46.7 mm/HG 38.0 - 51.0 [facility] pO2 V 24.4 mm/HG 30.0 - 55.0 L [facility] Bicarbonate [Moles/volume] in Venous blood 26.5 meq/L 22.0 - 29.0 [facility] TCO2 V 27.9 meq/L 22.0 - 29.0 [facility] Base excess in Blood by calculation 0.7 -2.0 - 2.0 [facility] O2 SAT V 41.0 % 40.0 - 85.0 [facility] ID Date Data Source [id number] 07/26/2020 09:53:00 AM EST [facility] Name Value Range Interpretation Code Description Data Zuleyka rce(s) Supporting Document(s) Lactate [Moles/volume] in Serum or Plasma 2.7 MMOL/L 0.2 - 2.2 H [facility] ID Date Data Source [id number] 07/21/2020 12:00:00 AM EST [facility] Name Value Range Interpretation Code Description Data Zuleyka rce(s) Supporting Document(s) Carestart Rapid COVID Antigen Test Positive [facility] This lab was reported by Lacie ordaz. ID Date Data Source [id number] 05/08/2020 12:00:00 AM EST [facility] Name Value Range Interpretation Code Description Data Zuleyka rce(s) Supporting Document(s) SARS coronavirus 2 Ag [facility] This lab was ordered by [facility] and reported by [facility]. ID Date Data Source [id number] 04/10/2020 08:54:00 AM EST [facility] ([facility]) Name Value Range Interpretation Code Description Data Zuleyka rce(s) Supporting Document(s) Color of Urine Laboratory test result [facility] ([facility]) Appearance of Urine Laboratory test result [facility] ([facility]) Spec [place] 1.020 [facility] ([facility]) pH of Urine by Test strip 5 [facility] ([facility]) Protein [Presence] in Urine by Test strip Laboratory test result [facility] ([facility]) Leukocytes Laboratory test result [facility] ([facility]) Nitrate [Presence] in Urine Laboratory test result [facility] ([facility]) Inhouse Glucose Laboratory test result [facility] ([facility]) Ketones [Presence] in Urine by Test strip Laboratory test result [facility] ([facility]) Urobilinogen Laboratory test result [facility] ([facility]) Blood type and Indirect antibody screen panel - Blood Laboratory test result [facility] ([facility]) Bilirubin.total [Presence] in Urine by Test strip Laboratory test res ult [facility] ([facility]) ID Date Data Source [id number] 09/29/2019 05:01:00 PM EDT [facility] Name Value Range Interpretation Code Description Data Zuleyka rce(s) Supporting Document(s) C[facility] PANEL [facility] LIP[facility] PAN[facility] Cholesterol [Mass/volume] in Serum or Plasma 119 MG/DL 131 - 200 L [facility] Deprecated Triglyceride [Mass/volume] in Serum or Plasma 192 MG/DL 3 5 - 160 H [facility] HDL 41 MG/DL 29 - 86 [facility] Cholesterol in LDL/Cholesterol in HDL [Mass Ratio] in Serum or Plasma 63 mg/dL 65 - 175 L [facility] Cholesterol.total/Cholesterol in HDL [Mass Ratio] in Serum o r Plasma 2.9 3.4 - 4.9 L [facility] LDL/HDL 1.54 1.00 - 3.55 [facility] ital CVE RISK CHOL/HDL LDL/HDLMEN: 1/2 AVERAGE 3.43 1.00 AVERAGE 4.97 3.55 2X AVERAGE 9.55 6.25 3X AVERAGE 23.99 7.99WOMEN: 1/2 AVERAGE 3.27 1.47 AVERAGE 4.44 3.22 2X AVERAGE 7.05 5.03 3X AVERAGE 11.04 6.14 ID Date Data Source [id number] 09/29/2019 05:01:00 PM EDT [facility] Name Value Range Interpretation Code Description Data Zuleyka rce(s) Supporting Document(s) COMPREHENSIVE METABOLIC PANEL [facility] COMPREHENSIVE METABOLIC PANEL Sodium [Moles/volume] in Serum or Plasma 142 mEq/L 134 - 153 [facility] Potassium [Moles/volume] in Serum or Plasma 4.8 mEq/L 3.6 - 5.0 [facility] Chloride [Moles/volume] in Serum or Plasma 103 mEq/L 98 - 107 [facility] Carbon dioxide, total [Moles/volume] in Serum or Plasma 27 MEQ/L 22 - 30 [facility] Glucose [Mass/volume] in Serum or Plasma 135 MG/DL 65 - 110 H [facility] BUN 22 MG/DL 7 - 21 [facility] Creatinine [Mass/volume] in Serum or Plasma 1.3 MG/DL 0.7 - 1.5 [facility] BUN/CREAT 17 8 - 27 [facility] al Protein [Mass/volume] in Serum or Plasma 7.2 G/DL 6.3 - 8.2 [facility] Albumin [Mass/volume] in Serum or Plasma 4.7 G/DL 3.9 - 5.0 [facility] Globulin [Mass/volume] in Serum by calculation 2.5 GM/DL 2.4 - 3.2 [facility] A/G RATIO 1.9 0.8 - 2.0 [facility] Calcium [Mass/volume] in Serum or Plasma 9.5 MG/DL 8.4 - 10.2 [facility] Bilirubin.total [Mass/volume] in Serum or Plasma <0.7 MG/DL 0.2 - 1.3 [facility] Alkaline phosphatase [Enzymatic activity/volume] in Serum or Plasma 77 U/L 38 - 126 [facility] Aspartate aminotransferase [Enzymatic activity/volume] in Serum or Plasma 23 U/L 5 - 40 [facility] Alanine aminotransferase [Enzymatic activity/volume] in Seru m or Plasma 22 U/L 7 - 56 [facility] Anion gap 3 in Serum or Plasma 12.0 mmol/L 8.0 - 16.0 [facility] AGE 74 yrs [facility] NON-AA GFR 57 mL/min [facility] AFR AMER GFR >60 mL/min [facility] Male GFR In terprentation 20-49 yrs >60 mL/min Normal 50-59 yrs >56 mL/min Normal 60-69 yrs >49 mL/min Normal 70-79yrs >42 mL/min Normal 80 and above >35 mL/min Normal Female GFR Interpretation 20-39 yrs >60 mL/min Normal 40-49 yrs >58 mL/min Normal 50-59 yrs >51 mL/min Normal 60-69 yrs >45 mL/min Normal 70-79 yrs >39 mL/min Normal 80 and above >32 mL/min Normal ID Date Data Source [id number] 09/29/2019 05:00:00 PM EDT [facility] Name Value Range Interpretation Code Description Data Zuleyka rce(s) Supporting Document(s) Magnesium [Mass/volume] in Serum or Plasma 2.1 MG/DL 1.7 - 2.2 [facility] ID Date Data Source [id number] 09/29/2019 04:49:00 PM EDT [facility] Name Value Range Interpretation Code Description Data Zuleyka rce(s) Supporting Document(s) Thyrotropin [Units/volume] in Serum or Plasma by Detec tion limit <= 0.05 mIU/L 3.16 uIU/mL 0.47 - 5.01 [facility] ID Date Data Source [id number] 09/29/2019 04:49:00 PM EDT [facility] Name Value Range Interpretation Code Description Data Zuleyka rce(s) Supporting Document(s) Prostate specific Ag [Mass/volume] in Serum or Plasma 1.36 ng/mL 0.00 - 4.00 [facility] \\BLDo\\PSA INTERPRETA TION\\BLDx\\ The PSA assay should not be used alone for a screening test or diagnosis for presence or absence of malignant disease. Predictions of disease recurrence should not be based solely on values obtained from serial patient serum values. The PSA result was determined by "[employer]", on the Pansieve NIKOLAS 6000. Values obtained with different assay methods or kits cannot be used interchangeably. ID Date Data Source [id number] 09/29/2019 04:27:00 PM EDT [facility] Name Value Range Interpretation Code Description Data Zuleyka rce(s) Supporting Document(s) Hemoglobin A1c/Hemoglobin.total in Blood 6.1 % 4.4 - 6.1 [facility] {A1]{HB] ID Date Data Source [id number] 09/29/2019 04:08:00 PM EDT [facility] Name Value Range Interpretation Code Description [facility] Supporting Document(s) CBC W/AUTOMATED DIFF [facility] COMPLETE BLOOD COUNT Leukocytes [#/volume] in Blood by Automated count 6.4 10^3/uL 4.2 - 1 1.0 [facility] Erythrocytes [#/volume] in Blood by Automated count 4.58 10^6/uL 4. 50 - 6.30 [facility] Hemoglobin [Mass/volume] in Blood 14.9 g/dL 14.0 - 16.0 [facility] Hematocrit [Volume Fraction] of Blood by Automated count 43.1 % 4 1.0 - 51.0 [facility] Erythrocyte mean corpuscular volume [Entitic volume] by Auto mated count 94.1 fL 80.0 - 94.0 H [facility] Erythrocyte mean corpuscular hemoglobin [Entitic mass] by Automated count 32.5 pg 27.0 - 34.0 [facility] Erythrocyte mean corpuscular hemoglobin concentration [Mass/volume] by Automated count 34.6 g/dL 31.0 - 36.0 [facility] Erythrocyte distribution width [Ratio] by Automated count 11.9 % 11.5 - 14.8 [facility] Platelets [#/volume] in Blood by Automated count 212 10^3/uL 150 - 45 0 [facility] Platelet mean volume [Entitic volume] in Blood by Automated count 8.8 fL 7.4 - 10.4 [facility] Neutrophils/100 leukocytes in Blood by Automated count 61.5 % 37. 0 - 80.0 [facility] Lymphocytes/100 leukocytes in Blood by Manual count 22.9 % 25.0 - 40.0 L [facility] Monocytes/100 leukocytes in Blood by Automated count 11.2 % 3.0 - 8.0 H [facility] Eosinophils/100 leukocytes in Blood by Automated count 3.0 % 0.0 - 7.0 [facility] Basophils/100 leukocytes in Blood by Automated count 0.9 % 0.0 - 2.0 [facility] %IG 0.5 % 0.0 - 0.0 [facility] %NRBC 0.0 % 0.0 - 0.0 [facility] Neutrophils [#/volume] in Blood by Automated count 3.96 10^3/uL 2.00 - 6.90 [facility] Lymphocytes [#/volume] in Blood by Automated count 1.47 10^3/uL 0.60 - 3.40 [facility] Monocytes [#/volume] in Blood by Automated count 0.72 10^3/uL 0.00 - 0.90 [facility] Eosinophils [#/volume] in Blood by Automated count 0.19 10^3/uL 0.00 - 0.70 [facility] Basophils [#/volume] in Blood by Automated count 0.06 10^3/uL 0.00 - 0.20 [facility] #IG 0.03 10^3/uL 0.00 - 0.10 [facility] #NRBC 0.00 10^3/uL 0.00 - 0.00 [facility] MANUAL DIFF NOT INDICATED [facility] RBC MORPH NOT INDICATED [facility] spital ID Date Data Source [id number] 09/29/2019 04:08:00 PM EDT [facility] Name Value Range Interpretation Code Description Data Zuleyka rce(s) Supporting Document(s) [facility]IS [facility] UR[facility]ALYS[facility] SOURCE R [facility] COLOR yellow NORMAL: Yellow [facility] CLARITY clear NORMAL: Clear [facility] Specific gravity of Urine by Test strip 1.025 1.001 - 1.030 [facility] pH 5 5 - 9 [facility] Glucose [Mass/volume] in Urine by Test strip NORM NORMAL: Negat [facility] Bilirubin.total [Presence] in Urine by Test strip NEG NORMAL: Negative [facility] Ketones [Presence] in Urine by Test strip NEG NORMAL: Negative [facility] Protein [Mass/volume] in Urine by Test strip NEG NORMAL: Negat [facility] Nitrite [Presence] in Urine by Test strip NEG NORMAL: Negative [facility] BLOOD NEG NORMAL: Negative [facility] Leukocyte esterase [Presence] in Urine by Test strip NEG ENOC L: Negative [facility] Urobilinogen [Mass/volume] in Urine by Test strip NOR less calvin n 1.0 mg/dL [facility] MICROSCOPIC Not Indicate [facility] Procedure Social History Code Duration Value Status Description Data Source(s ) Smoking 04/10/2020 12:00:00 AM EST Never Smoked A Pipe complet ed Never Smoked A Pipe [facility] ([facility]) Vital Signs ID Date Data Source UNK Name Value Range Interpretation Code Description Data Source(s) Body surface area Derived from formula 2.16 m2 2.16 m2 [facility] ([facility]) Body mass index (BMI) [Ratio] 30.4 kg/m2 30.4 k g/m2 [facility] ([facility]) Body height 70.5 [in_i] 70.5 [in_i] [facility] ([facility]) 5'10.50" Body weight 97.524 kg 97.524 kg [facility] ([facility]) Body weight 215.00 [lb_av] 215.00 [lb_av] [facility] ([facility]) Oxygen saturation in Arterial blood by Pulse oximetry 97 % 97 % [facility] ([facility]) Respiratory rate 16 /min 16 /min [facility] ( [facility]) Body temperature 98.4 [degF] 98.4 [degF] [facility] ([facility]) Heart rate 72 /min 72 /min [facility] ([facility]) Diastolic blood pressure 76 mm[Hg] 76 mm[Hg] [facility] ([facility]) Systolic blood pressure 127 mm[Hg] 127 mm[Hg] M [facility] ([facility])
--- NOTE | 2020-07-26 16:14 | HPEPDOC ---
[facility] Medical History & Physical Date of Admission Jul 26, 2020 Date of Service: Jul 26, 2020 History and Physical CHIEF COMPLAINT: shortness of breath HISTORY OF PRESENT ILLNESS: 74-year-old male with a history of atrial fibrillation (s/p pacemaker, AC on eliquis), hypertension, GERD. Presented to [facility] on 07/26/20 with a 5 day hx of dyspnea worse on exertion with cough. He complains of white/bocanegra sputum since onset of symptoms. Per report patient was diagnosed with Covid-19 on appoximatley 07/19/20 at urgent care in [place], [place] ([facility]). CXR showed subtle ground glass opacities on the right greater than the left. Also concerning or bilateral infiltrates suggestive of Covid pneumonia seen on CT angiogram. No large pulmonary embolism was seen. However, there were questionable tiny defects in the left lower lobe and small subsegmental emboli were not completely excluded on CT angiogram. Findings of severe COPD were noted. Patient was transferred to [facility] for elevation of care. Further, patient reports having had diarrhea for the past week over 100 daily, 2 episodes occurred approximately 2-3 times per day. 6. Associated with a dark discoloration of stool without melena or gross hematuria. The patient also endorses dark stool is also associated with me in mid/central abdominal pain without radiation. Patient has had reduced by mouth intake for the past 4-5 days and continues to have very little appetite. Upon arrival, patient was saturating 92% on room air. Respiratory rate is 18. Blood pressure 150/68. Pulse is 60, EKG showing paced rhythm. Temperature is 100.9. Patient has been started on azithromycin and ceftriaxone, Cytoxan will be continued and azithromycin will be switched for metronidazole for atypical coverage. Pertinent laboratory workup includes lactic acid of 2.1, which responded to half a liter of normal saline. Repeat lactic acid 1.4. Patient's inflammatory markers were elevated consistent with Covid. These included d-dimer elevated at 800. Ferritin 1200. CRP 5.5. LDH 331. His hemoglobin was noted to still 0.6. There was no leukocytosis. Cultures were drawn. Patient will be admitted to hospital service for management of Covid 19 and work up of abdominal pain. PAST MEDICAL HISTORY: Atrial fibrillation HTN Hiatal hernia GERD PAST SURGICAL HISTORY: Pacemaker Hernia repair Sinus surgery SOCIAL HISTORY: Patient denies smoking Patient denies etoh use Patient denies illicit drug use FAMILY HISTORY: reviewed with patient, no pertinent findings ALLERGIES: Please see below. REVIEW OF SYSTEMS: 10 point ROS completed, pertinent findings noted in HPI HOME MEDICATIONS: Please see below. PHYSICAL EXAMINATION: VITAL SIGNS: please see below General: NAD, comfortable HEENT: PERRLA, EOMI, sclerae clear Neck: supple, normal ROM, no JVD Respiratory: lungs CTAB, no wheeze, no rales, no crackles CVS: RRR, normal S1, S2, no murmurs Abdo: soft, no masses, no hepatosplenomegaly, BS+, no rebound tenderness Extremities: no edema, pulses 2+ MSK: no joint deformities, normal ROM Neuro: no focal neuro deficits, moving all 4 extremities, CN2-12 intact. Strength 5/5 in all 4 extremities. No nystagmus. Psych: calm, cooperative, AAO x 3 LABORATORY DATA: See below. IMAGING: CTA at outside hospital showing no large PEs but some questionable MICROBIOLOGY: Please see below. ASSESSMENT: 74-year-old male with a history of atrial fibrillation, hypertension and GERD transfer from [facility] on 07/26/20 for treatment of Covid 19 infection along the lung with abdominal pain. Patient was initially diagnosed with Covid on 07/19/20. Continues to have shortness of breath on exertion along with central abdominal pain associated with dark stools and diarrhea. PLAN: #Covid-19 infection - elevated inflammatory markers, D dimer > 100. CRP elevated -Saturating 92% on room air. - droplet precautions -This patient is not hypoxic. Will not start dexamethasone or severe. - monitor daily inflammatory labs - given cough productive of sputum, continue abx (ceftriaxone Day 1), Flagyl (Day 1) - check and trend procal -Anticoagulation will be continued with eliquis Questionable PEs - no large PEs noted, but small peripheral PEs could not be ruled out - patient is on eliquis - will continue AC despite possible GIB, as Hgb is above 12 and patient is high risk for CVA due to afib Afib - pacemaker - c/w eliquis - c/w flecainide - rate controlled, paced at 60 Abdo pain 2/2 possible diverticulitis? - associated with intermittent diarrhea - central abdominal location, no radiation - febrile, no WBC - associated with dark stools - unable to obtain CT abdo w contrast as patient received CTA, will ordered in 24 hours HTN - resume losartan Dark stools - check fecal occult blood - Hgb > 12 - denies gross melena, hematochezia - ongoing for approx 1 week - will hold Eliquis if Hgb drops - continue eliquis for now due to questionable tiny peripheral PEs and afib Dispo: - pending clinical improvement DVT ppx: eliquis, SCDs, TEDs Vital Signs Vital Signs Date Time Temp Pulse Resp B/P (MAP) Pulse Ox O2 Delivery O2 Flow Rate FiO2 07/26/20 15:30 100.9 60 18 150/68 (95) 92 Room Air Home Medications Scheduled Apixaban (Eliquis) 5 Mg Tablet, 5 MG PO BID Atorvastatin Calcium (Atorvastatin Calcium) 20 Mg Tablet, 20 MG PO QHS Azithromycin (Azithromycin) 500 Mg Vial, 500 MG IV ONCE RECEIVED AT [facility] Ceftriaxone Sodium (Ceftriaxone) 1 Gm Vial, 1 GM IV ONCE RECEIVED AT [facility] Flecainide Acetate (Flecainide Acetate) 100 Mg Tablet, 100 MG PO BID Losartan Potassium (Losartan Potassium) 50 Mg Tablet, 50 MG PO QHS Metoprolol Succinate (Metoprolol Succinate) 25 Mg Tab.er.24h, 25 MG PO DAILY Pantoprazole Sodium (Pantoprazole Sodium) 40 Mg Tablet.dr, 40 MG PO QPM Allergies Coded Allergies: No Known Allergies (Unverified , 07/26/20) SHIREEN LUNDY MD Jul 26, 2020 16:14
[2020-07-26] MEDS ORDERED: [UNRECOGNIZED DRUG - CODE] IV (17:09)
[2020-07-26] MEDS ORDERED: CEFT1INJ5 IV (17:09)
[2020-07-26] MEDS ORDERED: LOSA50TA88 PO (17:14)
[2020-07-26] MEDS ORDERED: FLEC1TAB PO (17:14)
[2020-07-26] MEDS ORDERED: ELIQ5TAB PO (17:14)
[2020-07-26] MEDS ORDERED: METO1TAB32 PO (17:14)
[2020-07-26] MEDS ORDERED: ATOR1TAB21 PO (17:14)
[2020-07-26] MEDS ORDERED: PANT-23 PO (17:14)
--- NOTE | 2020-07-26 17:19 | REP ---
INDICATION: COVID. COMPARISON: No comparison radiograph. TECHNIQUE: Portable upright AP chest radiograph. FINDINGS: The lungs are well inflated. There are some increased markings in the right mid lung field. Possible infiltrate.. Pleural angles are sharp. Heart size is normal. Pulmonary vasculature is not increased. A bipolar pacemaker is seen in the right heart view of the left side. Monitoring electrodes are noted. IMPRESSION: Possible infiltrate right mid lung field. Otherwise no acute disease.. <Electronically signed by Rodger Angeles > 07/26/20 [id number]
[2020-07-26 17:35] LABS: HEMATOCRIT 36.2 % (42.0-52.0); HEMOGLOBIN 12.6 g/dl (13.5-17.5); LYMPH # 0.4 10^3/uL (1.5-5.0); MEAN CORPUSCULAR HGB CONC 34.8 g/dl (32.0-36.5); MEAN CORPUSCULAR VOLUME 91.9 fl (80.0-96.0); MONO # 0.5 10^3/uL (0.0-0.8); MONO % 7.4 % (2.0-8.0); NEUTROPHILS # 5.2 10^3/uL (1.5-8.5); NEUTROPHILS % 86.1 % (36.0-66.0); PLATELET COUNT, AUTOMATED 175 10^3/uL (150-450); RED BLOOD COUNT 3.94 10^6/uL (4.30-6.10); WHITE BLOOD COUNT 6.1 10^3/uL (4.0-10.0)
[2020-07-26 17:56] LABS: ALBUMIN 3.2 GM/DL (3.2-5.2); ALT/SGPT 30 U/L (12-78); BILIRUBIN,TOTAL 1.2 MG/DL (0.2-1.0); BLOOD UREA NITROGEN 21 MG/DL (7-18); C REACTIVE PROTEIN QUANTITATIV 5.51 MG/DL (0.00-0.30); CALCIUM LEVEL 8.1 MG/DL (8.8-10.2); CARBON DIOXIDE LEVEL 22 MEQ/L (21-32); CHLORIDE LEVEL 102 MEQ/L (98-107); CPK CREATINE PHOSPHOKINASE 282 U/L (39-308); CREATININE FOR GFR 0.98 MG/DL (0.70-1.30); FERRITIN 1246 NG/ML (26-388); GLOMERULAR FILTRATION RATE > 60.0 (>42); GLUCOSE, FASTING 133 MG/DL (70-100); LDH LACTATE DEHYDROGENASE 331 U/L (87-241); MAGNESIUM LEVEL 1.8 MG/DL (1.8-2.4); POTASSIUM SERUM 3.8 MEQ/L (3.5-5.1); SODIUM LEVEL 137 MEQ/L (136-145); TOTAL PROTEIN 6.2 GM/DL (6.4-8.2); TROPONIN I < 0.02 NG/ML (< 0.10)
[2020-07-26 18:04] LABS: INR 1.58; PROTHROMBIN TIME 19.2 SECONDS (12.5-14.3)
[2020-07-26 18:05] LABS: PARTIAL THROMBOPLASTIN TIME 40.8 SECONDS (24.2-38.5)
[2020-07-26 18:07] LABS: D-DIMER QUANT 522.89 ng/ml (<500)
[2020-07-26] MEDS: metroNIDAZOLE 500 MG in IV 1 EA IV SCH (18:13)
[2020-07-26] MEDS: ACETAMINOPHEN TAB 650MG DOSE (2X325MG) PO PRN (18:13)
[2020-07-26] MEDS ORDERED: ISOVUE-370 76% 100ML VIAL As Ordered ONE (18:22)
[2020-07-26] MEDS: cefTRIAXone SOD 2 GM in D5W MINI-BAG PLUS 50 ML IV SCH (19:53)
[2020-07-26] MEDS: LOSARTAN 50MG TABLET PO SCH ×2 (21:00→22:44)
[2020-07-26 22:00] VITALS: BP 122/62
[2020-07-26] MEDS: FLECAINIDE 50MG TABLET PO SCH (22:43)
[2020-07-26] MEDS: APIXABAN 5 MG TAB (ELIQUIS) PO SCH (22:44)
[2020-07-26] MEDS: ATORVASTATIN 20 MG TAB PO SCH (22:44)
[2020-07-26] MEDS: DOCUSATE SODIUM 100MG CAPSULE PO SCH (22:44)
[2020-07-26] MEDS: PANTOPRAZOLE 40MG TAB (PROTONIX) PO SCH (22:44)
[2020-07-27] MEDS: metroNIDAZOLE 500 MG in IV 1 EA IV SCH ×3 (02:06→17:48)
[2020-07-27] MEDS ORDERED: guaiFENesin 200 MG TAB PO ONE (02:30)
[2020-07-27] MEDS: ONDANSETRON 4MG/2ML VIAL IV PRN (02:47)
[2020-07-27] MEDS ORDERED: METOPROLOL 5 MG/5 ML VIAL IV STA (05:02)
[2020-07-27] MEDS ORDERED: METOPROLOL SUCC *XL* 25MG TAB (TopROL *XL*) PO ONE (05:30)
[2020-07-27] MEDS ORDERED: METOPROLOL 5 MG/5 ML VIAL IV ONE (05:45)
[2020-07-27 05:50] LABS: BASO % 0.4 % (0.0-1.0); EOS % 0.2 % (0.0-3.0); HEMATOCRIT 35.9 % (42.0-52.0); HEMOGLOBIN 12.3 g/dl (13.5-17.5); LYMPH # 0.5 10^3/uL (1.5-5.0); LYMPH % 8.3 % (24.0-44.0); MEAN CORPUSCULAR HEMOGLOBIN 31.6 pg (27.0-33.0); MEAN CORPUSCULAR HGB CONC 34.3 g/dl (32.0-36.5); MEAN CORPUSCULAR VOLUME 92.3 fl (80.0-96.0); MONO # 0.6 10^3/uL (0.0-0.8); MONO % 9.9 % (2.0-8.0); NEUTROPHILS # 4.5 10^3/uL (1.5-8.5); NEUTROPHILS % 80.3 % (36.0-66.0); PLATELET COUNT, AUTOMATED 176 10^3/uL (150-450); RED BLOOD COUNT 3.89 10^6/uL (4.30-6.10); WHITE BLOOD COUNT 5.6 10^3/uL (4.0-10.0)
[2020-07-27 06:10] VITALS: BP 110/62
[2020-07-27 06:23] LABS: ALBUMIN 2.8 GM/DL (3.2-5.2); ALT/SGPT 29 U/L (12-78); BILIRUBIN,TOTAL 0.8 MG/DL (0.2-1.0); BLOOD UREA NITROGEN 22 MG/DL (7-18); CARBON DIOXIDE LEVEL 24 MEQ/L (21-32); CHLORIDE LEVEL 104 MEQ/L (98-107); CREATININE FOR GFR 0.98 MG/DL (0.70-1.30); GLOMERULAR FILTRATION RATE > 60.0 (>42); GLUCOSE, FASTING 117 MG/DL (70-100); MAGNESIUM LEVEL 1.9 MG/DL (1.8-2.4); POTASSIUM SERUM 3.5 MEQ/L (3.5-5.1); SODIUM LEVEL 137 MEQ/L (136-145); THYROID STIMULATING HORMONE 0.955 uIU/ML (0.358-3.740); TOTAL PROTEIN 6.7 GM/DL (6.4-8.2)
[2020-07-27 08:10] VITALS: BP 102/61
[2020-07-27] MEDS ORDERED: DIGOXIN INJ 0.5 MG/2 ML AMP (J1160) IV STA (08:38)
--- NOTE | 2020-07-27 08:40 | IPNPDOC ---
Date Seen The patient was seen on 07/27/20. Progress Note SUBJECTIVE: Patient was seen and examined this morning at bedside. Developed rapid ventricular rate. Early this morning required 5 mg of IV metoprolol 2. By mouth dose was given earlier. On arrival, he was still in rapid ventricular rate. Therefore, 0.25 mg of IV digoxin was given. Patient became more hypoxic overnight developed hypoxia requiring 5 L of nasal cannula. I suspect this is what spurred the onset of atrial fibrillation. Patient is presently anticoagulated. Now rate controlled in sinus. OBJECTIVE PHYSICAL EXAMINATION: General: NAD, comfortable HEENT: PERRLA, EOMI, sclerae clear Neck: supple, normal ROM, no JVD Respiratory: reduced air entry bilaterally at lung bases, no crackles, no rales CVS: RRR, normal S1, S2, no murmurs Abdo: soft, no masses, no hepatosplenomegaly, BS+, no rebound tenderness Extremities: no edema, pulses 2+ MSK: no joint deformities, normal ROM Neuro: no focal neuro deficits, moving all 4 extremities, CN2-12 intact. Strength 5/5 in all 4 extremities. No nystagmus. Psych: calm, cooperative, AAO x 3 LABORATORY DATA, IMAGING STUDIES, MICROBIOLOGY: Please see below. Echocardiogram: ordered 2D echo on 07/27/20. DVT prophylaxis ordered?: SCDs. TEDs. Eliquis. ASSESSMENT AND PLAN: 74-year-old male with a history of atrial fibrillation (s/p pacemaker, AC on eliquis), hypertension, GERD, admitted for COVID-19 infection with possible superimposed bacterial infection. Developed RVR with hypoxia. PROBLEMS: #Covid-19 infection - droplet precautions - D dimer trending down, < 500 - NC 5L, 92% - start dexamethasone 6 mg IV daily (Day 1) - start remdesivir (Day 1) - monitor daily inflammatory labs - given cough productive of sputum, continue abx (ceftriaxone Day 1), Flagyl (Day 1) - check and trend procal -Anticoagulation will be continued with eliquis Questionable PEs - no large PEs noted, but small peripheral PEs could not be ruled out - patient is on eliquis - will continue AC despite possible GIB, as Hgb is above 12 and patient is high risk for CVA due to afib - discussed with lyndsay Hamlin to c/w eliquis in setting of questionable tiny PEs, given possible hx of non compliance - will check 2D echo Afib - pacemaker - c/w eliquis - c/w flecainide - rate controlled, paced at 60 - Discussed with Dr. 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 Recommending continuing flecainide, reports issues with patient's medication compliance. - will check 2D echo stat. Abdo pain 2/2 possible diverticulitis? - associated with intermittent diarrhea - central abdominal location, no radiation - febrile, no WBC - associated with dark stools - unable to obtain CT abdo w contrast as patient received CTA, will ordered in 24 hours HTN - resume losartan with parameters Dark stools - check fecal occult blood - Hgb > 12 - denies gross melena, hematochezia - ongoing for approx 1 week - will hold Eliquis if Hgb drops - continue eliquis for now due to questionable tiny peripheral PEs and afib Dispo: - pending clinical improvement DVT ppx: eliquis, SCDs, TEDs VS, I&O, 24H, Fishbone Vital Signs/I&O Vital Signs Date Time Temp Pulse Resp B/P (MAP) Pulse Ox O2 Delivery O2 Flow Rate FiO2 07/27/20 08:10 121 18 102/61 (75) 92 Nasal Cannula 5.0 07/27/20 06:10 97.9 I&O- Last 24 Hours up to 6 AM 07/27/20 06:00 Intake Total 620 ml Output Total 175 ml Balance 445 ml Laboratory Data 24H LABS Laboratory Tests 2 07/26/20 17:10: Prothrombin Time 19.2H, Prothromb Time International Ratio 1.58, Activated Partial Thromboplast Time 40.8H, Fibrinogen 511H, D-Dimer, Quantitative 522.89H 07/26/20 17:11: Immature Granulocyte % (Auto) 0.5, Neutrophils (%) (Auto) 86.1H, Lymphocytes (%) (Auto) 6.0L, Monocytes (%) (Auto) 7.4, Eosinophils (%) (Auto) 0.0, Basophils (%) (Auto) 0.0, Neutrophils # (Auto) 5.2, Lymphocytes # (Auto) 0.4L, Monocytes # (Auto) 0.5, Eosinophils # (Auto) 0.0, Basophils # (Auto) 0.0, Nucleated Red Blood Cells % (auto) 0.0, Anion Gap 13, Glomerular Filtration Rate > 60.0, Lactic Acid Level 2.1*H, Calcium Level 8.1L, Magnesium Level 1.8, Ferritin 1246H, Total Bilirubin 1.2H, Aspartate Amino Transf (AST/SGOT) 44H, Alanine Aminotransferase (ALT/SGPT) 30, Alkaline Phosphatase 72, Lactate Dehydrogenase 331H, Total Creatine Kinase 282, Troponin I < 0.02, C-Reactive Protein, Quantitative 5.51H, Total Protein 6.2L, Albumin 3.2, Albumin/Globulin Ratio 1.1 07/26/20 20:06: Lactic Acid Level 1.4 07/27/20 05:38: Immature Granulocyte % (Auto) 0.9, Neutrophils (%) (Auto) 80.3H, Lymphocytes (%) (Auto) 8.3L, Monocytes (%) (Auto) 9.9H, Eosinophils (%) (Auto) 0.2, Basophils (%) (Auto) 0.4, Neutrophils # (Auto) 4.5, Lymphocytes # (Auto) 0.5L, Monocytes # (Auto) 0.6, Eosinophils # (Auto) 0.0, Basophils # (Auto) 0.0, Nucleated Red Blood Cells % (auto) 0.0, Anion Gap 9, Glomerular Filtration Rate > 60.0, Calcium Level 8.0L, Magnesium Level 1.9, Total Bilirubin 0.8, Aspartate Amino Transf (AST/SGOT) 54H, Alanine Aminotransferase (ALT/SGPT) 29, Alkaline Phosphatase 69, Total Protein 6.7, Albumin 2.8L, Albumin/Globulin Ratio 0.7, Thyroid Stimulating Hormone (TSH) 0.955 CBC/BMP Laboratory Tests 07/26/20 17:11 07/27/20 05:38 Microbiology Microbiology 07/26/20 Blood Culture, Received Pending 07/26/20 Blood Culture, Received Pending 07/26/20 Respiratory Virus Panel (PCR) ([facility]) - Final, Complete SARS-CoV-2 (COVID 19) SHIREEN LUNDY MD Jul 27, 2020 08:40
[2020-07-27] MEDS: FLECAINIDE 50MG TABLET PO SCH ×2 (08:51→19:33)
[2020-07-27] MEDS: DOCUSATE SODIUM 100MG CAPSULE PO SCH ×2 (08:51→19:08)
[2020-07-27] MEDS: APIXABAN 5 MG TAB (ELIQUIS) PO SCH ×2 (08:51→19:33)
[2020-07-27 09:27] LABS: C REACTIVE PROTEIN QUANTITATIV 6.29 MG/DL (0.00-0.30); TROPONIN I < 0.02 NG/ML (< 0.10)
[2020-07-27] MEDS ORDERED: REMDESIVIR 200 MG in NS 250 ML IV ONE (10:00)
[2020-07-27] MEDS: dexameTHASONE 4 MG/ML 1ML VIAL (J1100 PER 1MG) IV SCH (10:06)
[2020-07-27] MEDS ORDERED: SODIUM CHLORIDE 0.9% INJ 10 ML SYR IV ONE (12:00)
[2020-07-27 14:00] VITALS: BP 119/60
--- NOTE | 2020-07-27 16:12 | REP ---
INDICATION: abdo pain. COMPARISON: None. TECHNIQUE: Portably obtained supine AP radiograph of the abdomen and pelvis. FINDINGS: Bowel gas pattern is unremarkable. There is air in nondilated large and small bowel loops. No evidence of obstruction. Psoas margins and flank stripes are intact. No mass, organomegaly, or pathologic calcification is seen. There are some harpreet or clips in the right inguinal soft tissues. IMPRESSION: Unremarkable portable KUB. No evidence of obstruction. <Electronically signed by Rodger Angeles > 07/27/20 [id number]
[2020-07-27] MEDS: BENZONATATE 100 MG CAP PO PRN (17:48)
[2020-07-27] MEDS: cefTRIAXone SOD 2 GM in D5W MINI-BAG PLUS 50 ML IV SCH (19:19)
[2020-07-27 19:20] VITALS: BP 130/75
[2020-07-27] MEDS: PANTOPRAZOLE 40MG TAB (PROTONIX) PO SCH (19:33)
[2020-07-27] MEDS: ATORVASTATIN 20 MG TAB PO SCH (19:33)
[2020-07-27] MEDS: LOSARTAN 50MG TABLET PO SCH (19:34)
[2020-07-28] MEDS: metroNIDAZOLE 500 MG in IV 1 EA IV SCH ×3 (00:59→17:19)
[2020-07-28 04:24] VITALS: BP 110/52
[2020-07-28 06:49] LABS: BASO % 0.2 % (0.0-1.0); HEMOGLOBIN 12.1 g/dl (13.5-17.5); LYMPH # 0.3 10^3/uL (1.5-5.0); LYMPH % 3.9 % (24.0-44.0); MEAN CORPUSCULAR HEMOGLOBIN 32.2 pg (27.0-33.0); MEAN CORPUSCULAR HGB CONC 34.6 g/dl (32.0-36.5); MEAN CORPUSCULAR VOLUME 93.1 fl (80.0-96.0); MONO # 0.7 10^3/uL (0.0-0.8); MONO % 7.8 % (2.0-8.0); NEUTROPHILS # 7.6 10^3/uL (1.5-8.5); NEUTROPHILS % 87.2 % (36.0-66.0); PLATELET COUNT, AUTOMATED 199 10^3/uL (150-450); RED BLOOD COUNT 3.76 10^6/uL (4.30-6.10); WHITE BLOOD COUNT 8.7 10^3/uL (4.0-10.0)
[2020-07-28 07:21] LABS: ALBUMIN 2.6 GM/DL (3.2-5.2); ALT/SGPT 31 U/L (12-78); BILIRUBIN,TOTAL 0.5 MG/DL (0.2-1.0); BLOOD UREA NITROGEN 28 MG/DL (7-18); CALCIUM LEVEL 8.4 MG/DL (8.8-10.2); CARBON DIOXIDE LEVEL 29 MEQ/L (21-32); CHLORIDE LEVEL 103 MEQ/L (98-107); GLOMERULAR FILTRATION RATE > 60.0 (>42); GLUCOSE, FASTING 124 MG/DL (70-100); MAGNESIUM LEVEL 2.1 MG/DL (1.8-2.4); POTASSIUM SERUM 3.7 MEQ/L (3.5-5.1); SODIUM LEVEL 138 MEQ/L (136-145); TOTAL PROTEIN 6.3 GM/DL (6.4-8.2)
[2020-07-28] MEDS: BENZONATATE 100 MG CAP PO PRN ×2 (07:41→19:34)
[2020-07-28] MEDS: APIXABAN 5 MG TAB (ELIQUIS) PO SCH ×2 (07:41→19:34)
[2020-07-28] MEDS: FLECAINIDE 50MG TABLET PO SCH ×2 (07:42→19:35)
[2020-07-28] MEDS: dexameTHASONE 4 MG/ML 1ML VIAL (J1100 PER 1MG) IV SCH (07:43)
[2020-07-28] MEDS: METOPROLOL SUCC *XL* 25MG TAB (TopROL *XL*) PO SCH (07:45)
[2020-07-28] MEDS: DOCUSATE SODIUM 100MG CAPSULE PO SCH ×2 (07:46→19:35)
[2020-07-28] MEDS: SODIUM CHLORIDE 0.9% INJ 10 ML SYR IV SCH (09:14)
[2020-07-28] MEDS: REMDESIVIR 100 MG in NS 250 ML IV SCH (09:14)
[2020-07-28 14:17] VITALS: BP 100/59
--- NOTE | 2020-07-28 15:31 | IPNPDOC ---
Date Seen The patient was seen on 07/28/20. Progress Note SUBJECTIVE: Patient was seen and examined this morning at bedside. Developed rapid ventricular rate. Early this morning required 5 mg of IV metoprolol 2. By mouth dose was given earlier. On arrival, he was still in rapid ventricular rate. Therefore, 0.25 mg of IV digoxin was given. Patient became more hypoxic overnight developed hypoxia requiring 5 L of nasal cannula. I suspect this is what spurred the onset of atrial fibrillation. Patient is presently anticoagulated. Now rate controlled in sinus. Patient was seen and examined at bedside. Doing well. Abdominal pain has resolved. No more diarrhea. Appetite has improved. Denies CP, cough, n/v/d and fevers/chills. Has mild cough, non productive. OBJECTIVE PHYSICAL EXAMINATION: General: NAD, comfortable HEENT: PERRLA, EOMI, sclerae clear Neck: supple, normal ROM, no JVD Respiratory: reduced air entry bilaterally at lung bases, no crackles, no rales CVS: RRR, normal S1, S2, no murmurs Abdo: soft, no masses, no hepatosplenomegaly, BS+, no rebound tenderness Extremities: no edema, pulses 2+ MSK: no joint deformities, normal ROM Neuro: no focal neuro deficits, moving all 4 extremities, CN2-12 intact. Strength 5/5 in all 4 extremities. No nystagmus. Psych: calm, cooperative, AAO x 3 LABORATORY DATA, IMAGING STUDIES, MICROBIOLOGY: Please see below. Echocardiogram: ordered 2D echo on 07/27/20. DVT prophylaxis ordered?: SCDs. TEDs. Eliquis. ASSESSMENT AND PLAN: 74-year-old male with a history of atrial fibrillation (s/p pacemaker, AC on eliquis), hypertension, GERD, admitted for COVID-19 infection with possible superimposed bacterial infection. Developed RVR with hypoxia. PROBLEMS: #Covid-19 infection - droplet precautions - D dimer trending down, < 500 - NC 4-5L, 92% - start dexamethasone 6 mg IV daily (Day 1) - start remdesivir (Day 1) - monitor daily inflammatory labs - given cough productive of sputum, continue abx (ceftriaxone Day 3), Flagyl (Day 3) - check and trend procal - Anticoagulation will be continued with eliquis Questionable PEs - no large PEs noted, but small peripheral PEs could not be ruled out - patient is on eliquis - will continue AC despite possible GIB, as Hgb is above 12 and patient is high risk for CVA due to afib - discussed with Dr. Escobar, ok to c/w eliquis in setting of questionable tiny PEs, given possible hx of non compliance - will check 2D echo: prelim read by Dr. Reza. EF 50-55%. Mild aortic regurgitation. Afib - pacemaker - c/w eliquis - c/w flecainide - rate controlled, paced at 60 - Discussed with Dr. 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 Recommending continuing flecainide, reports issues with patient's medication compliance. - will check 2D echo stat. Prelim read by Dr. Reza. EF 50-55%. Mild aortic regurgitation. Abdo pain 2/2 possible diverticulitis? - associated with intermittent diarrhea - central abdominal location, no radiation - febrile, no WBC - associated with dark stools - unable to obtain CT abdo w contrast as patient received CTA, will ordered in 24 hours - will defer CT as patient's abdominal pain and diarrhea have resolved. He is tolerating PO and having normal BMs. HTN - resume losartan with parameters Dark stools - check fecal occult blood - Hgb > 12 - denies gross melena, hematochezia - ongoing for approx 1 week - will hold Eliquis if Hgb drops - continue eliquis for now due to questionable tiny peripheral PEs and afib Dispo: - pending clinical improvement DVT ppx: eliquis, SCDs, TEDs VS, I&O, 24H, Fishbone Vital Signs/I&O Vital Signs Date Time Temp Pulse Resp B/P (MAP) Pulse Ox O2 Delivery O2 Flow Rate FiO2 07/28/20 14:17 97.3 60 18 100/59 (73) 89 Nasal Cannula 4.0 I&O- Last 24 Hours up to 6 AM 07/28/20 06:00 Intake Total 960 ml Output Total 200 ml Balance 760 ml Laboratory Data 24H LABS Laboratory Tests 2 07/28/20 06:08: Immature Granulocyte % (Auto) 0.9, Neutrophils (%) (Auto) 87.2H, Lymphocytes (%) (Auto) 3.9L, Monocytes (%) (Auto) 7.8, Eosinophils (%) (Auto) 0.0, Basophils (%) (Auto) 0.2, Neutrophils # (Auto) 7.6, Lymphocytes # (Auto) 0.3L, Monocytes # (Auto) 0.7, Eosinophils # (Auto) 0.0, Basophils # (Auto) 0.0, Nucleated Red Blood Cells % (auto) 0.0, Anion Gap 6L, Glomerular Filtration Rate > 60.0, Calcium Level 8.4L, Magnesium Level 2.1, Total Bilirubin 0.5, Aspartate Amino Transf (AST/SGOT) 54H, Alanine Aminotransferase (ALT/SGPT) 31, Alkaline Phosphatase 64, Total Protein 6.3L, Albumin 2.6L, Albumin/Globulin Ratio 0.7 CBC/BMP Laboratory Tests 07/28/20 06:08 Microbiology Microbiology 07/26/20 Blood Culture - Preliminary, Resulted No growth after 24 hours . All specim... 07/26/20 Blood Culture - Preliminary, Resulted No growth after 24 hours . All specim... 07/26/20 Respiratory Virus Panel (PCR) ([facility]) - Final, Complete SARS-CoV-2 (COVID 19) SHIREEN LUNDY MD Jul 28, 2020 15:31
[2020-07-28] MEDS: cefTRIAXone SOD 2 GM in D5W MINI-BAG PLUS 50 ML IV SCH (18:35)
[2020-07-28] MEDS: PANTOPRAZOLE 40MG TAB (PROTONIX) PO SCH (19:34)
[2020-07-28] MEDS: ATORVASTATIN 20 MG TAB PO SCH (19:35)
[2020-07-28 19:38] VITALS: BP 110/60
[2020-07-28] MEDS: LOSARTAN 50MG TABLET PO SCH (21:00)
[2020-07-29] MEDS: metroNIDAZOLE 500 MG in IV 1 EA IV SCH ×3 (03:00→17:47)
[2020-07-29 04:17] VITALS: BP 152/66
[2020-07-29 07:02] LABS: BASO % 0.1 % (0.0-1.0); HEMOGLOBIN 12.6 g/dl (13.5-17.5); LYMPH # 0.4 10^3/uL (1.5-5.0); LYMPH % 2.8 % (24.0-44.0); MEAN CORPUSCULAR HEMOGLOBIN 32.1 pg (27.0-33.0); MEAN CORPUSCULAR VOLUME 91.6 fl (80.0-96.0); MONO # 0.8 10^3/uL (0.0-0.8); MONO % 5.8 % (2.0-8.0); NEUTROPHILS # 12.1 10^3/uL (1.5-8.5); NEUTROPHILS % 90.1 % (36.0-66.0); PLATELET COUNT, AUTOMATED 238 10^3/uL (150-450); RED BLOOD COUNT 3.93 10^6/uL (4.30-6.10); WHITE BLOOD COUNT 13.4 10^3/uL (4.0-10.0)
[2020-07-29 07:23] LABS: ALBUMIN 2.7 GM/DL (3.2-5.2); ALT/SGPT 34 U/L (12-78); BILIRUBIN,TOTAL 0.6 MG/DL (0.2-1.0); BLOOD UREA NITROGEN 30 MG/DL (7-18); CALCIUM LEVEL 8.1 MG/DL (8.8-10.2); CARBON DIOXIDE LEVEL 25 MEQ/L (21-32); CHLORIDE LEVEL 106 MEQ/L (98-107); CREATININE FOR GFR 0.97 MG/DL (0.70-1.30); GLOMERULAR FILTRATION RATE > 60.0 (>42); GLUCOSE, FASTING 137 MG/DL (70-100); MAGNESIUM LEVEL 2.2 MG/DL (1.8-2.4); POTASSIUM SERUM 3.8 MEQ/L (3.5-5.1); SODIUM LEVEL 141 MEQ/L (136-145)
[2020-07-29] MEDS: FLECAINIDE 50MG TABLET PO SCH ×2 (08:28→20:34)
[2020-07-29] MEDS: dexameTHASONE 4 MG/ML 1ML VIAL (J1100 PER 1MG) IV SCH (08:28)
[2020-07-29] MEDS: APIXABAN 5 MG TAB (ELIQUIS) PO SCH ×2 (08:28→20:33)
[2020-07-29] MEDS: BENZONATATE 100 MG CAP PO PRN (08:28)
[2020-07-29] MEDS: METOPROLOL SUCC *XL* 25MG TAB (TopROL *XL*) PO SCH (08:29)
[2020-07-29] MEDS: DOCUSATE SODIUM 100MG CAPSULE PO SCH ×2 (09:00→20:15)
[2020-07-29] MEDS: REMDESIVIR 100 MG in NS 250 ML IV SCH (09:49)
[2020-07-29] MEDS: SODIUM CHLORIDE 0.9% INJ 10 ML SYR IV SCH (09:50)
[2020-07-29 14:00] VITALS: BP 128/62
[2020-07-29] MEDS: COMBIVENT RESPIMAT 100-20MCG INHALER 4GM INH PRN (16:22)
[2020-07-29] MEDS: cefTRIAXone SOD 2 GM in D5W MINI-BAG PLUS 50 ML IV SCH (17:47)
[2020-07-29] MEDS: PANTOPRAZOLE 40MG TAB (PROTONIX) PO SCH (20:33)
[2020-07-29] MEDS: ATORVASTATIN 20 MG TAB PO SCH (20:33)
[2020-07-29] MEDS: LOSARTAN 50MG TABLET PO SCH (20:33)
[2020-07-29 21:33] VITALS: BP 135/65
--- NOTE | 2020-07-29 22:10 | IPNPDOC ---
Date Seen The patient was seen on 07/29/20. Progress Note SUBJECTIVE: Patient was seen and examined this morning at bedside. Developed rapid ventricular rate. Early this morning required 5 mg of IV metoprolol 2. By mouth dose was given earlier. On arrival, he was still in rapid ventricular rate. Therefore, 0.25 mg of IV digoxin was given. Patient became more hypoxic overnight developed hypoxia requiring 5 L of nasal cannula. I suspect this is what spurred the onset of atrial fibrillation. Patient is presently anticoagulated. Now rate controlled in sinus. Patient was seen and examined at bedside. Abdominal pain has resolved. No more diarrhea. Appetite has improved. Denies CP, cough, n/v/d and fevers/chills. Has mild cough, non productive. Patient seems to have low mood, low energy. Denies suicidal thoughts, denies prior hx of depression. States that he is down due to covid infection and hospitalization. Has poor appetite. OBJECTIVE PHYSICAL EXAMINATION: General: NAD, comfortable HEENT: PERRLA, EOMI, sclerae clear Neck: supple, normal ROM, no JVD Respiratory: reduced air entry bilaterally at lung bases, no crackles, no rales CVS: RRR, normal S1, S2, no murmurs Abdo: soft, no masses, no hepatosplenomegaly, BS+, no rebound tenderness Extremities: no edema, pulses 2+ MSK: no joint deformities, normal ROM Neuro: no focal neuro deficits, moving all 4 extremities, CN2-12 intact. Strength 5/5 in all 4 extremities. No nystagmus. Psych: calm, cooperative, AAO x 3 LABORATORY DATA, IMAGING STUDIES, MICROBIOLOGY: Please see below. Echocardiogram: ordered 2D echo on 07/27/20. DVT prophylaxis ordered?: SCDs. TEDs. Eliquis. ASSESSMENT AND PLAN: 74-year-old male with a history of atrial fibrillation (s/p pacemaker, AC on eliquis), hypertension, GERD, admitted for COVID-19 infection with possible superimposed bacterial infection. Developed RVR with hypoxia. PROBLEMS: #Covid-19 infection - droplet precautions - D dimer trending down, < 500 - NC 4-5L, 92% - start dexamethasone 6 mg IV daily (Day 2) - start remdesivir (Day 2) - monitor daily inflammatory labs - given cough productive of sputum, continue abx (ceftriaxone Day 4), Flagyl (Day 4) - check and trend procal - Anticoagulation will be continued with eliquis Questionable PEs - no large PEs noted, but small peripheral PEs could not be ruled out - patient is on eliquis - will continue AC despite possible GIB, as Hgb is above 12 and patient is high risk for CVA due to afib - discussed with Dr. Escobar, ok to c/w eliquis in setting of questionable tiny PEs, given possible hx of non compliance - will check 2D echo: prelim read by Dr. Reza. EF 50-55%. Mild aortic reg urgitation. Afib - pacemaker - c/w eliquis - c/w flecainide, metoprolol - rate controlled, paced at 60 - Discussed with Dr. 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 Recommending continuing flecainide, reports issues with patient's medication compliance. - will check 2D echo stat. Prelim read by Dr. Reza. EF 50-55%. Mild aortic regurgitation. - hgb remains stable Abdo pain 2/2 possible diverticulitis? - associated with intermittent diarrhea - central abdominal location, no radiation - febrile, no WBC - associated with dark stools - unable to obtain CT abdo w contrast as patient received CTA, will ordered in 24 hours - will defer CT as patient's abdominal pain and diarrhea have resolved. He is tolerating PO and having normal BMs. HTN - resume losartan with parameters Dark stools - check fecal occult blood - Hgb > 12 - denies gross melena, hematochezia - ongoing for approx 1 week - will hold Eliquis if Hgb drops - continue eliquis for now due to questionable tiny peripheral PEs and afib Dispo: - pending clinical improvement - PT recommending home with services - will likely require home O2 DVT ppx: eliquis, SCDs, TEDs VS, I&O, 24H, Fishbone Vital Signs/I&O Vital Signs Date Time Temp Pulse Resp B/P (MAP) Pulse Ox O2 Delivery O2 Flow Rate FiO2 07/29/20 21:48 4.0 07/29/20 21:33 97.5 60 18 135/65 (88) 96 Nasal Cannula I&O- Last 24 Hours up to 6 AM 07/29/20 06:00 Intake Total 360 ml Balance 360 ml Laboratory Data 24H LABS Laboratory Tests 2 07/29/20 06:37: Immature Granulocyte % (Auto) 1.2, Neutrophils (%) (Auto) 90.1H, Lymphocytes (%) (Auto) 2.8L, Monocytes (%) (Auto) 5.8, Eosinophils (%) (Auto) 0.0, Basophils (%) (Auto) 0.1, Neutrophils # (Auto) 12.1H, Lymphocytes # (Auto) 0.4L, Monocytes # (Auto) 0.8, Eosinophils # (Auto) 0.0, Basophils # (Auto) 0.0, Nucleated Red Blood Cells % (auto) 0.0, Anion Gap 10, Glomerular Filtration Rate > 60.0, Calcium Level 8.1L, Magnesium Level 2.2, Total Bilirubin 0.6, Aspartate Amino Transf (AST/SGOT) 53H, Alanine Aminotransferase (ALT/SGPT) 34, Alkaline Phosphatase 69, Total Protein 6.0L, Albumin 2.7L, Albumin/Globulin Ratio 0.8 CBC/BMP Laboratory Tests 07/29/20 06:37 Microbiology Microbiology 07/26/20 Blood Culture - Preliminary, Resulted No Growth after 72 hours. All specime... 07/26/20 Blood Culture - Preliminary, Resulted No Growth after 72 hours. All specime... 07/26/20 Respiratory Virus Panel (PCR) ([facility]) - Final, Complete SARS-CoV-2 (COVID 19) SHIREEN LUNDY MD Jul 29, 2020 22:10
[2020-07-30] VITALS (7 sets, daily range): BP systolic 117–134; BP diastolic 60–64; O2SAT 87–97
[2020-07-30] MEDS: metroNIDAZOLE 500 MG in IV 1 EA IV SCH ×3 (01:32→17:00)
[2020-07-30 06:30] LABS: BASO % 0.2 % (0.0-1.0); HEMATOCRIT 36.1 % (42.0-52.0); HEMOGLOBIN 12.6 g/dl (13.5-17.5); LYMPH # 0.4 10^3/uL (1.5-5.0); LYMPH % 3.9 % (24.0-44.0); MEAN CORPUSCULAR HEMOGLOBIN 32.3 pg (27.0-33.0); MEAN CORPUSCULAR HGB CONC 34.9 g/dl (32.0-36.5); MEAN CORPUSCULAR VOLUME 92.6 fl (80.0-96.0); MONO # 0.6 10^3/uL (0.0-0.8); MONO % 5.4 % (2.0-8.0); NEUTROPHILS # 9.1 10^3/uL (1.5-8.5); NEUTROPHILS % 89.1 % (36.0-66.0); PLATELET COUNT, AUTOMATED 245 10^3/uL (150-450); WHITE BLOOD COUNT 10.2 10^3/uL (4.0-10.0)
[2020-07-30 06:43] LABS: INR 2.58; PROTHROMBIN TIME 28.3 SECONDS (12.5-14.3)
[2020-07-30 06:47] LABS: D-DIMER QUANT 2380.23 ng/ml (<500)
[2020-07-30 07:01] LABS: ALBUMIN 2.6 GM/DL (3.2-5.2); ALT/SGPT 33 U/L (12-78); BILIRUBIN,TOTAL 0.6 MG/DL (0.2-1.0); BLOOD UREA NITROGEN 28 MG/DL (7-18); CALCIUM LEVEL 8.5 MG/DL (8.8-10.2); CARBON DIOXIDE LEVEL 26 MEQ/L (21-32); CHLORIDE LEVEL 105 MEQ/L (98-107); CREATININE FOR GFR 0.94 MG/DL (0.70-1.30); GLOMERULAR FILTRATION RATE > 60.0 (>42); GLUCOSE, FASTING 134 MG/DL (70-100); MAGNESIUM LEVEL 2.2 MG/DL (1.8-2.4); POTASSIUM SERUM 3.9 MEQ/L (3.5-5.1); SODIUM LEVEL 140 MEQ/L (136-145); TOTAL PROTEIN 5.7 GM/DL (6.4-8.2)
[2020-07-30 07:02] LABS: C REACTIVE PROTEIN QUANTITATIV 5.68 MG/DL (0.00-0.30); CPK CREATINE PHOSPHOKINASE 328 U/L (39-308); FERRITIN 983 NG/ML (26-388); LDH LACTATE DEHYDROGENASE 432 U/L (87-241); TROPONIN I < 0.02 NG/ML (< 0.10)
[2020-07-30] MEDS: DOCUSATE SODIUM 100MG CAPSULE PO SCH ×2 (07:18→20:48)
--- NOTE | 2020-07-30 08:07 | ECHO ---
DATE OF PROCEDURE: 07/27/2020 Age: 74 Gender: Male REASON FOR STUDY: Cardiac arrhythmia REFERRING PROVIDER: Cooper Huff MD 2D MEASUREMENTS: IVS 2.9 cm LV 5.3 cm LVPW 0.9 cm LA 3.8 cm Aorta 3.3 cm DOPPLER MEASUREMENT Peak velocity across the aortic valve 1.3 m/s Peak velocity across the LVOT 0.8 m/s Mitral E 0.64 Mitral A 069 with a ratio of 0.9 2D COMMENTS: 1. Normal left ventricular size, wall thickness, and low-normal global left ventricular systolic function. The estimated left ventricular systolic ejection fraction is 50% to 55%. 2. Normal left atrium. Normal right atrium and right ventricle. 3. The atrial septum appeared to be normal without evidence of defect or shunt. 4. Normal aortic root. 5. No pericardial effusion seen. 6. Mildly calcified aortic valve with normal leaflet excursion. Normal mitral valve, tricuspid valve, and pulmonic valve. The proximal pulmonary artery branches were not well visualized. 7. The inferior vena cava was not well visualized. DOPPLER: It detects mild aortic regurgitation, trace pulmonic regurgitation. Could not calculate the pulmonary artery systolic pressure. Abnormal relaxation pattern was noted across the mitral valve leaflets, as well as the mitral valve annulus consistent with features of grade 1 left ventricular diastolic dysfunction. IMPRESSION: 1. Low normal global left ventricular systolic function. There are some features of a left ventricular diastolic dysfunction manifested by abnormal relaxation, grade 1. 2. Aortic valve sclerosis with mild aortic regurgitation, but no aortic stenosis. MTDD
[2020-07-30] MEDS: METOPROLOL SUCC *XL* 25MG TAB (TopROL *XL*) PO SCH (09:20)
[2020-07-30] MEDS: APIXABAN 5 MG TAB (ELIQUIS) PO SCH ×2 (09:20→20:16)
[2020-07-30] MEDS: dexameTHASONE 4 MG/ML 1ML VIAL (J1100 PER 1MG) IV SCH (09:21)
[2020-07-30] MEDS: REMDESIVIR 100 MG in NS 250 ML IV SCH (09:22)
[2020-07-30] MEDS: FLECAINIDE 50MG TABLET PO SCH ×2 (10:38→20:16)
[2020-07-30] MEDS: SODIUM CHLORIDE 0.9% INJ 10 ML SYR IV SCH (10:38)
[2020-07-30] MEDS: COMBIVENT RESPIMAT 100-20MCG INHALER 4GM INH PRN (12:22)
--- NOTE | 2020-07-30 12:33 | IPNPDOC ---
Date Seen The patient was seen on 07/30/20. Progress Note SUBJECTIVE: Patient was seen and examined this morning at bedside. Developed rapid ventricular rate. Early this morning required 5 mg of IV metoprolol 2. By mouth dose was given earlier. On arrival, he was still in rapid ventricular rate. Therefore, 0.25 mg of IV digoxin was given. Patient became more hypoxic overnight developed hypoxia requiring 5 L of nasal cannula. I suspect this is what spurred the onset of atrial fibrillation. Patient is presently anticoagulated. Now rate controlled in sinus. Patient was seen and examined at bedside. Abdominal pain has resolved. No more diarrhea. Appetite has improved. Denies CP, cough, n/v/d and fevers/chills. Has mild cough, non productive. Patient seems to have low mood, low energy. Denies suicidal thoughts, denies prior hx of depression. States that he is down due to covid infection and hospitalization. Has poor appetite. Require more oxygen overnight, 5L/min on exertion, but worsening through the day, requiring vapotherm. Presently on 40 LPM at 85%. OBJECTIVE PHYSICAL EXAMINATION: General: NAD, comfortable HEENT: PERRLA, EOMI, sclerae clear Neck: supple, normal ROM, no JVD Respiratory: reduced air entry bilaterally at lung bases, no crackles, no rales CVS: RRR, normal S1, S2, no murmurs Abdo: soft, no masses, no hepatosplenomegaly, BS+, no rebound tenderness Extremities: no edema, pulses 2+ MSK: no joint deformities, normal ROM Neuro: no focal neuro deficits, moving all 4 extremities, CN2-12 intact. Strength 5/5 in all 4 extremities. No nystagmus. Psych: calm, cooperative, AAO x 3 LABORATORY DATA, IMAGING STUDIES, MICROBIOLOGY: Please see below. Echocardiogram: ordered 2D echo on 07/27/20. 1. Normal left ventricular size, wall thickness, and low-normal global left ventricular systolic function. The estimated left ventricular systolic ejection fraction is 50% to 55%. 2. Normal left atrium. Normal right atrium and right ventricle. 3. The atrial septum appeared to be normal without evidence of defect or shunt. 4. Normal aortic root. 5. No pericardial effusion seen. 6. Mildly calcified aortic valve with normal leaflet excursion. Normal mitral valve, tricuspid valve, and pulmonic valve. The proximal pulmonary artery branches were not well visualized. 7. The inferior vena cava was not well visualized. Doppler detects mild aortic regurgitation, trace pulmonic regurgitation. Could not calculate the pulmonary artery systolic pressure. Abnormal relaxation pattern was noted across the mitral valve leaflets, as well as the mitral valve annulus consistent with features of grade 1 left ventricular diastolic dysfunction. IMPRESSION: 1. Low normal global left ventricular systolic function. There are some features of a left ventricular diastolic dysfunction manifested by abnormal relaxation, grade 1. 2. Aortic valve sclerosis with mild aortic regurgitation, but no aortic stenosis. DVT prophylaxis ordered?: SCDs. TEDs. Eliquis. ASSESSMENT AND PLAN: 74-year-old male with a history of atrial fibrillation (s/p pacemaker, AC on eliquis), hypertension, GERD, admitted for COVID-19 infection with possible superimposed bacterial infection. Developed RVR with hypoxia. PROBLEMS: #Covid-19 infection - droplet precautions - D dimer trending up, 470 to 2400 - NC 4-5L, but became more hypoxic, requiring vapotherm today, now 40 LPM at 85% - c/w dexamethasone 6 mg IV daily (Day 3) - c/w remdesivir (Day 3) - monitor daily inflammatory labs - given cough productive of sputum, continue abx (ceftriaxone Day 5), Flagyl (Day 5) -o intial procal 0.08. Trend. - Anticoagulation will be continued with eliquis Questionable PEs - no large PEs noted, but small peripheral PEs could not be ruled out - patient is on eliquis - will continue AC despite possible GIB, as Hgb is above 12 and patient is high risk for CVA due to afib - discussed with Dr. Escobar, ok to c/w eliquis in setting of questionable tiny PEs, given possible hx of non compliance - will check 2D echo: prelim read by Dr. Reza. EF 50-55%. Mild aortic regurgitation. Afib - pacemaker - c/w eliquis - c/w flecainide, metoprolol - rate controlled, paced at 60 - Discussed with Dr. 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 Recommending continuing flecainide, reports issues with patient's medication compliance. - will check 2D echo stat. Prelim read by Dr. Reza. EF 50-55%. Mild aortic regurgitation. - hgb remains stable Abdo pain 2/2 possible diverticulitis? - associated with intermittent diarrhea - central abdominal location, no radiation - febrile, no WBC - associated with dark stools - unable to obtain CT abdo w contrast as patient received CTA, will ordered in 24 hours - will defer CT as patient's abdominal pain and diarrhea have resolved. He is tolerating PO and having normal BMs. HTN - resume losartan with parameters Dark stools - check fecal occult blood - Hgb > 12 - denies gross melena, hematochezia - ongoing for approx 1 week - will hold Eliquis if Hgb drops - continue eliquis for now due to questionable tiny peripheral PEs and afib Low mood - denies SI - monitor Dispo: - pending clinical improvement - PT recommending home with services - will likely require home O2 DVT ppx: eliquis, SCDs, TEDs VS, I&O, 24H, Fishbone Vital Signs/I&O Vital Signs Date Time Temp Pulse Resp B/P (MAP) Pulse Ox O2 Delivery O2 Flow Rate FiO2 07/30/20 09:20 61 121/60 07/30/20 05:05 97.1 20 91 Nasal Cannula 5.0 I&O- Last 24 Hours up to 6 AM 07/30/20 06:00 Intake Total 0 ml Output Total 150 ml Balance -150 ml Laboratory Data 24H LABS Laboratory Tests 2 07/30/20 05:54: Immature Granulocyte % (Auto) 1.4, Neutrophils (%) (Auto) 89.1H, Lymphocytes (%) (Auto) 3.9L, Monocytes (%) (Auto) 5.4, Eosinophils (%) (Auto) 0.0, Basophils (%) (Auto) 0.2, Neutrophils # (Auto) 9.1H, Lymphocytes # (Auto) 0.4L, Monocytes # (Auto) 0.6, Eosinophils # (Auto) 0.0, Basophils # (Auto) 0.0, Nucleated Red Blood Cells % (auto) 0.0, Prothrombin Time 28.3H, Prothromb Time International Ratio 2.58, Activated Partial Thromboplast Time 30.0, Fibrinogen 457H, D-Dimer, Quantitative 2380.23H, Anion Gap 9, Glomerular Filtration Rate > 60.0, Calcium Level 8.5L, Magnesium Level 2.2, Ferritin 983H, Total Bilirubin 0.6, Aspartate Amino Transf (AST/SGOT) 52H, Alanine Aminotransferase (ALT/SGPT) 33, Alkaline Phosphatase 63, Lactate Dehydrogenase 432H, Total Creatine Kinase 328H, Troponin I < 0.02, C-Reactive Protein, Quantitative 5.68H, Total Protein 5.7L, Albumin 2.6L, Albumin/Globulin Ratio 0.8 CBC/BMP Laboratory Tests 07/30/20 05:54 Microbiology Microbiology 07/26/20 Blood Culture - Preliminary, Resulted No Growth after 72 hours. All specime... 07/26/20 Blood Culture - Preliminary, Resulted No Growth after 72 hours. All specime... 07/26/20 Respiratory Virus Panel (PCR) ([facility]) - Final, Complete SARS-CoV-2 (COVID 19) SHIREEN LUNDY MD Jul 30, 2020 12:33
[2020-07-30] MEDS: LOSARTAN 50MG TABLET PO SCH (20:18)
[2020-07-30] MEDS: ATORVASTATIN 20 MG TAB PO SCH (20:19)
[2020-07-30] MEDS: PANTOPRAZOLE 40MG TAB (PROTONIX) PO SCH (20:19)
[2020-07-31] VITALS (7 sets, daily range): BP systolic 136–153; BP diastolic 63–76; O2SAT 91–99
[2020-07-31] MEDS: metroNIDAZOLE 500 MG in IV 1 EA IV SCH ×3 (01:43→16:32)
[2020-07-31] MEDS ORDERED: RAMELTEON 8 MG TAB (ROZEREM) PO ONE (02:00)
[2020-07-31] MEDS: BENZONATATE 100 MG CAP PO PRN ×2 (06:19→19:49)
[2020-07-31 06:41] LABS: BASO % 0.2 % (0.0-1.0); HEMATOCRIT 33.5 % (42.0-52.0); LYMPH # 0.3 10^3/uL (1.5-5.0); LYMPH % 3.9 % (24.0-44.0); MEAN CORPUSCULAR HGB CONC 35.8 g/dl (32.0-36.5); MONO # 0.4 10^3/uL (0.0-0.8); MONO % 6.9 % (2.0-8.0); NEUTROPHILS # 5.6 10^3/uL (1.5-8.5); NEUTROPHILS % 87.6 % (36.0-66.0); PLATELET COUNT, AUTOMATED 150 10^3/uL (150-450); RED BLOOD COUNT 3.64 10^6/uL (4.30-6.10); WHITE BLOOD COUNT 6.4 10^3/uL (4.0-10.0)
[2020-07-31 06:56] LABS: INR 2.93; PROTHROMBIN TIME 31.2 SECONDS (12.5-14.3)
[2020-07-31 06:57] LABS: PARTIAL THROMBOPLASTIN TIME 31.2 SECONDS (24.2-38.5)
[2020-07-31 07:03] LABS: FIBRINOGEN 407 MG/DL (221-452)
[2020-07-31 07:11] LABS: ALBUMIN 2.6 GM/DL (3.2-5.2); ALT/SGPT 38 U/L (12-78); BILIRUBIN,TOTAL 0.8 MG/DL (0.2-1.0); BLOOD UREA NITROGEN 25 MG/DL (7-18); C REACTIVE PROTEIN QUANTITATIV 5.17 MG/DL (0.00-0.30); CALCIUM LEVEL 7.9 MG/DL (8.8-10.2); CARBON DIOXIDE LEVEL 26 MEQ/L (21-32); CHLORIDE LEVEL 103 MEQ/L (98-107); CPK CREATINE PHOSPHOKINASE 217 U/L (39-308); CREATININE FOR GFR 0.83 MG/DL (0.70-1.30); FERRITIN 783 NG/ML (26-388); GLOMERULAR FILTRATION RATE > 60.0 (>42); GLUCOSE, FASTING 147 MG/DL (70-100); LDH LACTATE DEHYDROGENASE 383 U/L (87-241); MAGNESIUM LEVEL 2.1 MG/DL (1.8-2.4); POTASSIUM SERUM 4.1 MEQ/L (3.5-5.1); SODIUM LEVEL 139 MEQ/L (136-145); TOTAL PROTEIN 5.2 GM/DL (6.4-8.2); TROPONIN I 0.02 NG/ML (< 0.10)
[2020-07-31 08:22] LABS: D-DIMER QUANT > 4000 ng/ml (<500)
[2020-07-31] MEDS: DOCUSATE SODIUM 100MG CAPSULE PO SCH ×2 (09:00→19:36)
[2020-07-31] MEDS: APIXABAN 5 MG TAB (ELIQUIS) PO SCH ×2 (09:11→19:49)
[2020-07-31] MEDS: dexameTHASONE 4 MG/ML 1ML VIAL (J1100 PER 1MG) IV SCH (09:11)
[2020-07-31] MEDS: FLECAINIDE 50MG TABLET PO SCH ×2 (09:11→19:49)
[2020-07-31] MEDS: METOPROLOL SUCC *XL* 25MG TAB (TopROL *XL*) PO SCH (09:14)
[2020-07-31] MEDS ORDERED: cefTRIAXone SOD 1 GM in D5W MINI-BAG PLUS 50 ML IV SCH (10:00)
--- NOTE | 2020-07-31 10:04 | IPNPDOC ---
Text Note Date of Service The patient was seen on 07/31/20. NOTE Subjective: Patient is a 74-year-old male with a PMHx of Atrial fibrillation (s/p pacemaker, on Eliquis), HTN, GERD, who was originally admitted for COVID-19 infection with possible superimposed bacterial infection. Patient had developed RVR with hypoxia during hospitalist. Patient was seen and examined at the bedside. Currently patient reports that he's feeling well. Still reports that his breathing is short but improved from yesterday. Reports a mild cough. Denies any vomiting but does report nausea. Denies any abdominal pain. Reports some diarrhea. Denies any urinary discomfort. Objective: Vitals (See below) General: Lying in bed, appears comfortable, AAOx3 HEENT: NC, AT CVS: +S1S2 Lungs: Fair air entry b/l, -w/r/r Abdomen: Soft, ND, NT Extremities: - Edema, - Calf tenderness Imaging: CXR 07/26: Possible infiltrate right mid lung field. Otherwise no acute disease.. Abdomen XR 07/27: Unremarkable portable KUB. No evidence of obstruction. Echocardiogram: ordered 2D echo on 07/27/20. 1. Normal left ventricular size, wall thickness, and low-normal global left ventricular systolic function. The estimated left ventricular systolic ejection fraction is 50% to 55%. 2. Normal left atrium. Normal right atrium and right ventricle. 3. The atrial septum appeared to be normal without evidence of defect or shunt. 4. Normal aortic root. 5. No pericardial effusion seen. 6. Mildly calcified aortic valve with normal leaflet excursion. Normal mitral valve, tricuspid valve, and pulmonic valve. The proximal pulmonary artery branches were not well visualized. 7. The inferior vena cava was not well visualized. Doppler detects mild aortic regurgitation, trace pulmonic regurgitation. Could not calculate the pulmonary artery systolic pressure. Abnormal relaxation pattern was noted across the mitral valve leaflets, as well as the mitral valve annulus consistent with features of grade 1 left ventricular diastolic dysfunction. IMPRESSION: 1. Low normal global left ventricular systolic function. There are some features of a left ventricular diastolic dysfunction manifested by abnormal relaxation, grade 1. 2. Aortic valve sclerosis with mild aortic regurgitation, but no aortic stenosis. Assessment and plan: Acute hypoxic respiratory failure - likely 2/2 COVID-19 pneumonia, possible 2/2 PE, possibly 2/2 superimposed bacterial infection - Currently reports improvement of his breathing - Patient is currently on Vapotherm therapy; FiO2 requirement has improved - COVID19 positive 07/26/20 - Inflammatory markers are improving - c/w Dexamethasone (Day #4) - c/w Remdesivir (Day #4) - c/w Ceftriaxone and Flagyl (Day #6) Questionable PEs - no large PEs noted, but small peripheral PEs could not be ruled out - will continue AC despite possible GIB, as Hgb is above 12 and patient is high risk for CVA due to afib - discussed with Dr. Escobar, ok to c/w eliquis in setting of questionable tiny PEs, given possible hx of non compliance - will check 2D echo: prelim read by Dr. Reza. EF 50-55%. Mild aortic regurgitation. - c/w Eliquis A. fib - Currently is rate controlled - s/p pacemaker - c/w rate and rhythm control with flecainide, metoprolol - c/w full anticoagulation with eliquis Abdominal pain 2/2 possible diverticulitis? - Reports some diarrhea - No significant abdominal tenderness noted today - s/p leukocytosis - Tolerating PO diet HTN - BP well controlled - c/w losartan and metoprolol with parameters DLP - c/w Atorvastatin Dark stools - Will check fecal occult blood - Hgb stable Low mood - Denies SI Insomnia - c/w Ramelteon GI prophylaxis - c/w Protonix DVT prophylaxis - c/w Eliquis Disposition: - Pending clinical improvement VS,Fishbone, I+O VS, Fishbone, I+O Laboratory Tests 07/31/20 05:32 Vital Signs Date Time Temp Pulse Resp B/P (MAP) Pulse Ox O2 Delivery O2 Flow Rate FiO2 07/31/20 09:14 60 144/72 07/31/20 08:00 98.2 18 99 HVNI-Vapotherm 40.0 85 I&O- Last 24 Hours up to 6 AM 07/31/20 06:00 Intake Total 870 ml Output Total 525 ml Balance 345 ml BEVERLEY LAINEZ MD Jul 31, 2020 10:04
[2020-07-31] MEDS: REMDESIVIR 100 MG in NS 250 ML IV SCH (10:28)
[2020-07-31] MEDS: cefTRIAXone SOD 1 GM in D5W MINI-BAG PLUS 50 ML IV SCH (12:37)
[2020-07-31] MEDS: SODIUM CHLORIDE 0.9% INJ 10 ML SYR IV SCH (12:38)
[2020-07-31] MEDS: ATORVASTATIN 20 MG TAB PO SCH (19:49)
[2020-07-31] MEDS: PANTOPRAZOLE 40MG TAB (PROTONIX) PO SCH (19:49)
[2020-07-31] MEDS: RAMELTEON 8 MG TAB (ROZEREM) PO PRN (19:49)
[2020-07-31] MEDS: LOSARTAN 50MG TABLET PO SCH (20:10)
[2020-08-01] VITALS (9 sets, daily range): BP systolic 87–163; BP diastolic 51–81; O2SAT 91–97
[2020-08-01] MEDS: metroNIDAZOLE 500 MG in IV 1 EA IV SCH ×3 (00:18→17:59)
[2020-08-01] MEDS: dexameTHASONE 4 MG/ML 1ML VIAL (J1100 PER 1MG) IV SCH (08:41)
[2020-08-01] MEDS: FLECAINIDE 50MG TABLET PO SCH ×2 (08:41→20:04)
[2020-08-01] MEDS: DOCUSATE SODIUM 100MG CAPSULE PO SCH ×3 (08:42→20:03)
[2020-08-01] MEDS: APIXABAN 5 MG TAB (ELIQUIS) PO SCH ×2 (08:42→20:04)
[2020-08-01] MEDS: METOPROLOL SUCC *XL* 25MG TAB (TopROL *XL*) PO SCH (08:42)
[2020-08-01 08:44] LABS: BASO % 0.4 % (0.0-1.0); EOS % 0.1 % (0.0-3.0); HEMATOCRIT 35.8 % (42.0-52.0); HEMOGLOBIN 12.5 g/dl (13.5-17.5); LYMPH # 0.3 10^3/uL (1.5-5.0); LYMPH % 3.8 % (24.0-44.0); MEAN CORPUSCULAR HEMOGLOBIN 31.3 pg (27.0-33.0); MEAN CORPUSCULAR HGB CONC 34.9 g/dl (32.0-36.5); MEAN CORPUSCULAR VOLUME 89.7 fl (80.0-96.0); MONO # 0.6 10^3/uL (0.0-0.8); MONO % 7.4 % (2.0-8.0); NEUTROPHILS # 6.9 10^3/uL (1.5-8.5); NEUTROPHILS % 87.2 % (36.0-66.0); PLATELET COUNT, AUTOMATED 143 10^3/uL (150-450); RED BLOOD COUNT 3.99 10^6/uL (4.30-6.10)
[2020-08-01 09:10] LABS: ALBUMIN 2.5 GM/DL (3.2-5.2); ALT/SGPT 33 U/L (12-78); BILIRUBIN,TOTAL 0.8 MG/DL (0.2-1.0); BLOOD UREA NITROGEN 30 MG/DL (7-18); CALCIUM LEVEL 8.1 MG/DL (8.8-10.2); CARBON DIOXIDE LEVEL 26 MEQ/L (21-32); CHLORIDE LEVEL 105 MEQ/L (98-107); CREATININE FOR GFR 0.91 MG/DL (0.70-1.30); GLOMERULAR FILTRATION RATE > 60.0 (>42); GLUCOSE, FASTING 143 MG/DL (70-100); MAGNESIUM LEVEL 2.1 MG/DL (1.8-2.4); POTASSIUM SERUM 4.3 MEQ/L (3.5-5.1); SODIUM LEVEL 138 MEQ/L (136-145); TOTAL PROTEIN 5.4 GM/DL (6.4-8.2)
[2020-08-01] MEDS: cefTRIAXone SOD 1 GM in D5W MINI-BAG PLUS 50 ML IV SCH (10:54)
[2020-08-01] MEDS: NS 1,000 ML IV SCH (10:54)
--- NOTE | 2020-08-01 11:26 | IPNPDOC ---
Text Note Date of Service The patient was seen on 08/01/20. NOTE Subjective: Patient is a 74-year-old male with a PMHx of Atrial fibrillation (s/p pacemaker, on Eliquis), HTN, GERD, who was originally admitted for COVID-19 infection with possible superimposed bacterial infection. Patient had developed RVR with hypoxia during hospitalist. Patient was seen and examined at the bedside. Currently patient reports that her breathing is doing better. They deny any chest pain, shortness of breath, palpitations. Patient reports that his nausea is doing better. He tolerated breakfast this morning. Has not experienced any abdominal pain. Reports some diarrhea. Denies any urinary discomfort. Objective: Vitals (See below) General: Lying in bed, appears to be comfortable without any acute distress, is awake, alert and oriented to person, place and time HEENT: NC, AT CVS: +S1S2 Lungs: Fair air entry b/l, no appreciable wheezing, rhonchi or rales Abdomen: Soft, nondistended and nontender Extremities: Lower tremors are without any edema, - Calf tenderness Imaging: CXR 07/26: Possible infiltrate right mid lung field. Otherwise no acute disease.. Abdomen XR 07/27: Unremarkable portable KUB. No evidence of obstruction. Echocardiogram: ordered 2D echo on 07/27/20. 1. Normal left ventricular size, wall thickness, and low-normal global left ventricular systolic function. The estimated left ventricular systolic ejection fraction is 50% to 55%. 2. Normal left atrium. Normal right atrium and right ventricle. 3. The atrial septum appeared to be normal without evidence of defect or shunt. 4. Normal aortic root. 5. No pericardial effusion seen. 6. Mildly calcified aortic valve with normal leaflet excursion. Normal mitral valve, tricuspid valve, and pulmonic valve. The proximal pulmonary artery branches were not well visualized. 7. The inferior vena cava was not well visualized. Doppler detects mild aortic regurgitation, trace pulmonic regurgitation. Could not calculate the pulmonary artery systolic pressure. Abnormal relaxation pattern was noted across the mitral valve leaflets, as well as the mitral valve annulus consistent with features of grade 1 left ventricular diastolic dysfunction. IMPRESSION: 1. Low normal global left ventricular systolic function. There are some features of a left ventricular diastolic dysfunction manifested by abnormal relaxation, grade 1. 2. Aortic valve sclerosis with mild aortic regurgitation, but no aortic stenosis. Assessment and plan: Acute hypoxic respiratory failure - likely 2/2 COVID-19 pneumonia, possible 2/2 PE, possibly 2/2 superimposed bacterial infection - Clinically patient has reported improvement of his breathing still reports a mild cough - Patient is currently on Vapotherm therapy; amount of supplemental oxygen via FiO2 has been improving - COVID19 positive 07/26/20 - Inflammatory markers were improving yesterday; will continue to trend - c/w Dexamethasone (Day #5) - c/w Remdesivir (Day #5) - c/w Ceftriaxone and Flagyl (Day #7) Questionable PEs - no large PEs noted, but small peripheral PEs could not be ruled out - c/w Eliquis A. fib - Currently is rate controlled - s/p pacemaker - c/w rate and rhythm control with flecainide, metoprolol - c/w full anticoagulation with eliquis Abdominal pain 2/2 possible diverticulitis? - Reports some diarrhea - No significant abdominal tenderness noted today - s/p leukocytosis - Tolerating PO diet HTN - Patient was noted to have orthostatic hypotension this morning - Will discontinue losartan - Will start gentle IV fluid hydration - c/w Metoprolol with parameters DLP - c/w Atorvastatin Dark stools - Occult blood negative - Hemoglobin has remained stable Low mood - Denies SI Insomnia - c/w Ramelteon GI prophylaxis - c/w Protonix DVT prophylaxis - c/w Eliquis Disposition: - Pending clinical improvement VSLynn, I+O VSLynn, I+O Laboratory Tests 08/01/20 08:21 Vital Signs Date Time Temp Pulse Resp B/P (MAP) Pulse Ox O2 Delivery O2 Flow Rate FiO2 08/01/20 08:54 91 HVNI-Vapotherm 27.0 55 08/01/20 08:42 62 119/58 08/01/20 04:13 96.8 22 I&O- Last 24 Hours up to 6 AM 08/01/20 06:00 Intake Total 1280 ml Output Total 650 ml Balance 630 ml BEVERLEY LAINEZ MD Aug 01, 2020 11:26
[2020-08-01] MEDS: ATORVASTATIN 20 MG TAB PO SCH (20:04)
[2020-08-01] MEDS: PANTOPRAZOLE 40MG TAB (PROTONIX) PO SCH (20:04)
[2020-08-02] MEDS: metroNIDAZOLE 500 MG in IV 1 EA IV SCH ×3 (01:32→17:27)
[2020-08-02] MEDS: MAALOX 30 ML SUSP *UDC PO PRN (01:32)
[2020-08-02] MEDS: RAMELTEON 8 MG TAB (ROZEREM) PO PRN ×2 (01:32→19:11)
[2020-08-02] MEDS: NS 1,000 ML IV SCH ×3 (03:24→21:48)
[2020-08-02 04:49] VITALS: BP 187/88
[2020-08-02 04:59] VITALS: BP 152/88
[2020-08-02 07:46] LABS: BASO % 0.2 % (0.0-1.0); EOS % 0.2 % (0.0-3.0); HEMATOCRIT 35.9 % (42.0-52.0); HEMOGLOBIN 12.8 g/dl (13.5-17.5); LYMPH # 0.4 10^3/uL (1.5-5.0); LYMPH % 5.1 % (24.0-44.0); MEAN CORPUSCULAR HEMOGLOBIN 31.9 pg (27.0-33.0); MEAN CORPUSCULAR HGB CONC 35.7 g/dl (32.0-36.5); MEAN CORPUSCULAR VOLUME 89.5 fl (80.0-96.0); MONO # 0.8 10^3/uL (0.0-0.8); MONO % 9.1 % (2.0-8.0); NEUTROPHILS # 7.1 10^3/uL (1.5-8.5); NEUTROPHILS % 83.5 % (36.0-66.0); PLATELET COUNT, AUTOMATED 167 10^3/uL (150-450); RED BLOOD COUNT 4.01 10^6/uL (4.30-6.10); WHITE BLOOD COUNT 8.5 10^3/uL (4.0-10.0)
[2020-08-02 08:15] LABS: ALBUMIN 2.3 GM/DL (3.2-5.2); ALT/SGPT 30 U/L (12-78); BILIRUBIN,TOTAL 0.8 MG/DL (0.2-1.0); BLOOD UREA NITROGEN 23 MG/DL (7-18); CALCIUM LEVEL 7.6 MG/DL (8.8-10.2); CARBON DIOXIDE LEVEL 25 MEQ/L (21-32); CHLORIDE LEVEL 103 MEQ/L (98-107); CREATININE FOR GFR 0.76 MG/DL (0.70-1.30); GLOMERULAR FILTRATION RATE > 60.0 (>42); GLUCOSE, FASTING 127 MG/DL (70-100); MAGNESIUM LEVEL 1.9 MG/DL (1.8-2.4); POTASSIUM SERUM 4.1 MEQ/L (3.5-5.1); SODIUM LEVEL 137 MEQ/L (136-145); TOTAL PROTEIN 5.4 GM/DL (6.4-8.2)
[2020-08-02] MEDS: FLECAINIDE 50MG TABLET PO SCH ×2 (08:41→19:11)
[2020-08-02] MEDS: APIXABAN 5 MG TAB (ELIQUIS) PO SCH ×2 (08:41→19:11)
[2020-08-02] MEDS: dexameTHASONE 4 MG/ML 1ML VIAL (J1100 PER 1MG) IV SCH (08:41)
[2020-08-02 08:42] LABS: C REACTIVE PROTEIN QUANTITATIV 2.05 MG/DL (0.00-0.30); FERRITIN 830 NG/ML (26-388)
[2020-08-02] MEDS: DOCUSATE SODIUM 100MG CAPSULE PO SCH ×2 (08:43→19:12)
[2020-08-02] MEDS: METOPROLOL SUCC *XL* 25MG TAB (TopROL *XL*) PO SCH (08:43)
--- NOTE | 2020-08-02 12:50 | IPNPDOC ---
Text Note Date of Service The patient was seen on 08/02/20. NOTE Subjective: Patient is a 74-year-old male with a PMHx of Atrial fibrillation (s/p pacemaker, on Eliquis), HTN, GERD, who was originally admitted for COVID-19 infection with possible superimposed bacterial infection. Patient had developed RVR with hypoxia during hospitalist. Patient was seen and examined at the bedside. Currently patient denies any CP, SOB or palpitations. Reports a mild cough. Denies any abdominal pain, N/V, or constipation. Reports some diarrhea. Denies any urinary discomfort. Objective: Vitals (See below) General: Sitting up in bed, appears comfortable, awake / alert, oriented x3 HEENT: NC, AT CVS: +S1S2 Lungs: There appears to be fair air entry bilaterally without any evidence of crackles, wheezing or rhonchi Abdomen: Abdomen is without any distention or tenderness and remains soft Extremities: There does not appear to be any appreciated lower extremity edema Imaging: CXR 07/26: Possible infiltrate right mid lung field. Otherwise no acute disease.. Abdomen XR 07/27: Unremarkable portable KUB. No evidence of obstruction. Echocardiogram: ordered 2D echo on 07/27/20. 1. Normal left ventricular size, wall thickness, and low-normal global left ventricular systolic function. The estimated left ventricular systolic ejection fraction is 50% to 55%. 2. Normal left atrium. Normal right atrium and right ventricle. 3. The atrial septum appeared to be normal without evidence of defect or shunt. 4. Normal aortic root. 5. No pericardial effusion seen. 6. Mildly calcified aortic valve with normal leaflet excursion. Normal mitral valve, tricuspid valve, and pulmonic valve. The proximal pulmonary artery branches were not well visualized. 7. The inferior vena cava was not well visualized. Doppler detects mild aortic regurgitation, trace pulmonic regurgitation. Could not calculate the pulmonary artery systolic pressure. Abnormal relaxation pattern was noted across the mitral valve leaflets, as well as the mitral valve annulus consistent with features of grade 1 left ventricular diastolic dysfunction. IMPRESSION: 1. Low normal global left ventricular systolic function. There are some features of a left ventricular diastolic dysfunction manifested by abnormal relaxation, grade 1. 2. Aortic valve sclerosis with mild aortic regurgitation, but no aortic stenosis. Assessment and plan: Acute hypoxic respiratory failure - likely 2/2 COVID-19 pneumonia, possible 2/2 PE, possibly 2/2 superimposed bacterial infection - Reports improvement of their breathing - Patient is currently on Vapotherm therapy; amount of supplemental oxygen via FiO2 has been improving - COVID19 positive 07/26/20 - Inflammatory markers continue to improve - c/w Dexamethasone (Day #6) - s/p Remdesivir (5 day course) - c/w Ceftriaxone and Flagyl (Day #8) Questionable PEs - no large PEs noted, but small peripheral PEs could not be ruled out - c/w Eliquis A. fib - Currently is rate controlled - s/p pacemaker - c/w rate and rhythm control with flecainide, metoprolol - c/w full anticoagulation with eliquis Abdominal pain 2/2 possible diverticulitis? - Reports some diarrhea - No significant abdominal tenderness noted today - s/p leukocytosis - Tolerating PO diet HTN - Patient has continued to have orthostatic hypotension - although slightly improved - Will discontinue losartan - Will continue gentle IV fluid hydration - c/w Metoprolol with parameters DLP - c/w Atorvastatin Dark stools - Occult blood negative - Hemoglobin has remained stable Low mood - Denies SI Insomnia - c/w Ramelteon GI prophylaxis - c/w Protonix DVT prophylaxis - c/w Eliquis Disposition: - Pending clinical improvement - Anticipate discharge within 48 hours Lynn PORTILLO I+O VSLynn I+O Laboratory Tests 08/02/20 07:04 Vital Signs Date Time Temp Pulse Resp B/P (MAP) Pulse Ox O2 Delivery O2 Flow Rate FiO2 08/02/20 08:43 65 150/85 08/02/20 04:49 96.7 17 93 High Flow Cannula 6.0 08/01/20 09:00 55 I&O- Last 24 Hours up to 6 AM 08/02/20 06:00 Intake Total 1490 ml Output Total 700 ml Balance 790 ml BEVERLEY LAINEZ MD Aug 02, 2020 12:50
[2020-08-02 13:20] VITALS: O2SAT 90
[2020-08-02] MEDS: cefTRIAXone SOD 1 GM in D5W MINI-BAG PLUS 50 ML IV SCH (13:30)
[2020-08-02] MEDS: PANTOPRAZOLE 40MG TAB (PROTONIX) PO SCH (19:11)
[2020-08-02] MEDS: ATORVASTATIN 20 MG TAB PO SCH (19:11)
[2020-08-02 19:35] VITALS: BP 132/60
[2020-08-03] VITALS (7 sets, daily range): BP systolic 85–170; BP diastolic 51–88; O2SAT 90–95
[2020-08-03] MEDS: metroNIDAZOLE 500 MG in IV 1 EA IV SCH ×2 (00:57→08:31)
[2020-08-03] MEDS: ONDANSETRON 4MG/2ML VIAL IV PRN (07:02)
[2020-08-03] MEDS: dexameTHASONE 4 MG/ML 1ML VIAL (J1100 PER 1MG) IV SCH (08:31)
[2020-08-03] MEDS: APIXABAN 5 MG TAB (ELIQUIS) PO SCH ×2 (08:31→20:34)
[2020-08-03] MEDS: DOCUSATE SODIUM 100MG CAPSULE PO SCH ×2 (08:32→20:33)
[2020-08-03] MEDS: FLECAINIDE 50MG TABLET PO SCH ×2 (08:32→20:34)
[2020-08-03] MEDS: METOPROLOL SUCC *XL* 25MG TAB (TopROL *XL*) PO SCH (08:35)
[2020-08-03] MEDS: cefTRIAXone SOD 1 GM in D5W MINI-BAG PLUS 50 ML IV SCH (10:44)
[2020-08-03] MEDS: NS 1,000 ML IV SCH (10:45)
[2020-08-03] MEDS ORDERED: LOPERAMIDE 2 MG CAPLET PO PRN (12:00)
--- NOTE | 2020-08-03 12:02 | IPNPDOC ---
Text Note Date of Service The patient was seen on 08/03/20. NOTE Subjective: Patient is a 74-year-old male with a PMHx of Atrial fibrillation (s/p pacemaker, on Eliquis), HTN, GERD, who was originally admitted for COVID-19 infection with possible superimposed bacterial infection. Patient had developed RVR with hypoxia during hospitalist. Patient was seen and examined at the bedside. Currently reports that his breathing is doing relatively better. Has still been experiencing a nonproductive cough. Denies any chest pain, nausea, vomiting or abdominal pain. Patient still reports significant diarrhea. Has not experienced any urinary discomfort. Objective: Vitals (See below) General: Patient is laying on his side in bed, does not appear to be in any distress. Appears relatively comfortable, is awake, alert and oriented to person, place and time HEENT: NC, AT CVS: +S1S2 Lungs: Air entry is fair bilaterally without any evidence of crackles, wheezing or rhonchi Abdomen: There appears to be no distention or tenderness. Abdomen is soft Extremities: Edema is not appreciated at lower extremities Imaging: CXR 07/26: Possible infiltrate right mid lung field. Otherwise no acute disease.. Abdomen XR 07/27: Unremarkable portable KUB. No evidence of obstruction. Echocardiogram: ordered 2D echo on 07/27/20. 1. Normal left ventricular size, wall thickness, and low-normal global left ventricular systolic function. The estimated left ventricular systolic ejection fraction is 50% to 55%. 2. Normal left atrium. Normal right atrium and right ventricle. 3. The atrial septum appeared to be normal without evidence of defect or shunt. 4. Normal aortic root. 5. No pericardial effusion seen. 6. Mildly calcified aortic valve with normal leaflet excursion. Normal mitral valve, tricuspid valve, and pulmonic valve. The proximal pulmonary artery branches were not well visualized. 7. The inferior vena cava was not well visualized. Doppler detects mild aortic regurgitation, trace pulmonic regurgitation. Could not calculate the pulmonary artery systolic pressure. Abnormal relaxation pattern was noted across the mitral valve leaflets, as well as the mitral valve annulus consistent with features of grade 1 left ventricular diastolic dysfunction. IMPRESSION: 1. Low normal global left ventricular systolic function. There are some features of a left ventricular diastolic dysfunction manifested by abnormal relaxation, grade 1. 2. Aortic valve sclerosis with mild aortic regurgitation, but no aortic stenosis. Assessment and plan: Acute hypoxic respiratory failure - likely 2/2 COVID-19 pneumonia, possible 2/2 PE, possibly 2/2 superimposed bacterial infection - Currently patient has reported improvement of his breathing still reports a nonproductive cough - As been transitioned to nasal cannula oxygen - COVID19 positive 07/26/20 - Inflammatory markers continue to improve - c/w Dexamethasone (Day #7) - s/p Remdesivir (5 day course) - Will stop Ceftriaxone and Flagyl (Completed 8 day course) Questionable PEs - No large PEs noted, but small peripheral PEs could not be ruled out - on imaging completed at [place] - c/w [place] avery - Currently is rate controlled - s/p pacemaker - c/w rate and rhythm control with flecainide, metoprolol - c/w full anticoagulation with eliquis Abdominal pain 2/2 possible diverticulitis? - Still reports diarrhea - s/p leukocytosis - Will DC Ceftriaxone and Flagyl today - Tolerating PO diet; fully advanced - Will start Loperamide today HTN - Patient has continued to have orthostatic hypotension - although slightly improved - s/p Losartan - Will DC IV fluid hydration - c/w Metoprolol with parameters DLP - c/w Atorvastatin Dark stools - Occult blood negative - Hemoglobin has remained stable Low mood - Denies SI Insomnia - c/w Ramelteon GI prophylaxis - c/w Protonix DVT prophylaxis - c/w Eliquis Disposition: - Pending clinical improvement - PT recommending rehab on discharge VS,[facility], I+O VS, [facility], I+O Vital Signs Date Time Temp Pulse Resp B/P (MAP) Pulse Ox O2 Delivery O2 Flow Rate FiO2 08/03/20 08:35 60 153/70 08/03/20 08:30 5.0 08/03/20 08:00 93 High Flow Cannula 08/03/20 08:00 96.3 20 08/01/20 09:00 55 I&O- Last 24 Hours up to 6 AM 08/03/20 06:00 Intake Total 2940 ml Output Total 750 ml Balance 2190 ml EBVERLEY LAINEZ MD Aug 03, 2020 12:02
[2020-08-03] MEDS: ATORVASTATIN 20 MG TAB PO SCH (20:34)
[2020-08-03] MEDS: PANTOPRAZOLE 40MG TAB (PROTONIX) PO SCH (20:34)
[2020-08-04] VITALS (7 sets, daily range): BP systolic 97–167; BP diastolic 54–77; O2SAT 91–97
[2020-08-04 08:20] LABS: BASO % 0.3 % (0.0-1.0); EOS % 0.1 % (0.0-3.0); HEMATOCRIT 36.2 % (42.0-52.0); HEMOGLOBIN 12.7 g/dl (13.5-17.5); LYMPH # 0.5 10^3/uL (1.5-5.0); LYMPH % 4.5 % (24.0-44.0); MEAN CORPUSCULAR HEMOGLOBIN 31.3 pg (27.0-33.0); MEAN CORPUSCULAR HGB CONC 35.1 g/dl (32.0-36.5); MEAN CORPUSCULAR VOLUME 89.2 fl (80.0-96.0); MONO # 1.3 10^3/uL (0.0-0.8); MONO % 11.1 % (2.0-8.0); NEUTROPHILS # 9.2 10^3/uL (1.5-8.5); PLATELET COUNT, AUTOMATED 162 10^3/uL (150-450); RED BLOOD COUNT 4.06 10^6/uL (4.30-6.10); WHITE BLOOD COUNT 11.2 10^3/uL (4.0-10.0)
[2020-08-04 08:49] LABS: ALBUMIN 2.3 GM/DL (3.2-5.2); ALT/SGPT 29 U/L (12-78); BILIRUBIN,TOTAL 0.6 MG/DL (0.2-1.0); BLOOD UREA NITROGEN 22 MG/DL (7-18); C REACTIVE PROTEIN QUANTITATIV 1.28 MG/DL (0.00-0.30); CALCIUM LEVEL 7.7 MG/DL (8.8-10.2); CARBON DIOXIDE LEVEL 25 MEQ/L (21-32); CHLORIDE LEVEL 104 MEQ/L (98-107); CREATININE FOR GFR 0.87 MG/DL (0.70-1.30); FERRITIN 763 NG/ML (26-388); GLOMERULAR FILTRATION RATE > 60.0 (>42); GLUCOSE, FASTING 153 MG/DL (70-100); POTASSIUM SERUM 4.4 MEQ/L (3.5-5.1); SODIUM LEVEL 135 MEQ/L (136-145); TOTAL PROTEIN 5.3 GM/DL (6.4-8.2)
--- NOTE | 2020-08-04 08:50 | IPNPDOC ---
Text Note Date of Service The patient was seen on 08/04/20. NOTE Subjective: Patient is a 74-year-old male with a PMHx of Atrial fibrillation (s/p pacemaker, on Eliquis), HTN, GERD, who was originally admitted for COVID-19 infection with possible superimposed bacterial infection. Patient had developed RVR with hypoxia during hospitalist. Patient was seen and examined at the bedside. . She reports that he is comfo rtable laying in bed, does not appear to be in any acute distress. Reports his breathing is doing better. Reports a mild cough. Has not experience any chest pain, no nausea, vomiting, abdominal pain. Reports that his diarrhea has improved. Objective: Vitals (See below) General: Patient is laying on his back, appears to be comfortable, no acute distress, awake, alert and oriented 3 HEENT: NC, AT CVS: +S1S2 Lungs: Air entry is bilateral and fair. No evidence of wheezing, crackles or rhonchi Abdomen: Without distention or tenderness and soft Extremities: No edema Imaging: CXR 07/26: Possible infiltrate right mid lung field. Otherwise no acute disease.. Abdomen XR 07/27: Unremarkable portable KUB. No evidence of obstruction. Echocardiogram: ordered 2D echo on 07/27/20. 1. Normal left ventricular size, wall thickness, and low-normal global left ventricular systolic function. The estimated left ventricular systolic ejection fraction is 50% to 55%. 2. Normal left atrium. Normal right atrium and right ventricle. 3. The atrial septum appeared to be normal without evidence of defect or shunt. 4. Normal aortic root. 5. No pericardial effusion seen. 6. Mildly calcified aortic valve with normal leaflet excursion. Normal mitral valve, tricuspid valve, and pulmonic valve. The proximal pulmonary artery branches were not well visualized. 7. The inferior vena cava was not well visualized. Doppler detects mild aortic regurgitation, trace pulmonic regurgitation. Could not calculate the pulmonary artery systolic pressure. Abnormal relaxation pattern was noted across the mitral valve leaflets, as well as the mitral valve annulus consistent with features of grade 1 left ventricular diastolic dysfunction. IMPRESSION: 1. Low normal global left ventricular systolic function. There are some features of a left ventricular diastolic dysfunction manifested by abnormal relaxation, grade 1. 2. Aortic valve sclerosis with mild aortic regurgitation, but no aortic stenosis. Assessment and plan: Acute hypoxic respiratory failure - likely 2/2 COVID-19 pneumonia, possible 2/2 PE, possibly 2/2 superimposed bacterial infection - Patient reports that his breathing is doing a lot better today. Still reports a mild cough - Has been titrated down on his supplemental oxygen - COVID19 positive 07/26/20 - Inflammatory markers pending this morning - c/w Dexamethasone (Day #8) - s/p Remdesivir (5 day course) - s/p Ceftriaxone and Flagyl (Completed 8 day course) Questionable PEs - No large PEs noted, but small peripheral PEs could not be ruled out - on imaging completed at [place] - c/w Eliquis [place] fib - Currently is rate controlled - s/p pacemaker - c/w rate and rhythm control with flecainide, metoprolol - c/w full anticoagulation with eliquis s/p Abdominal pain 2/2 possible diverticulitis - Treatment of diarrhea - Leukocytosis noted this morning; will check CRP - Will DC Ceftriaxone and Flagyl today - Tolerating PO diet; fully advanced - c/w Loperamide PRN HTN - Patient has continued to have orthostatic hypotension; improving - s/p Losartan - s/p IV fluid hydration - Will DC Metoprolol with parameters DLP - c/w Atorvastatin Dark stools - Occult blood negative - Hemoglobin has remained stable Low mood - Denies SI Insomnia - c/w Ramelteon GI prophylaxis - c/w Protonix DVT prophylaxis - c/w Eliquis Disposition: - Pending clinical improvement - Patient is seeking home with services VS,Lynn, I+O VSLynn I+O Laboratory Tests 08/04/20 08:00 Vital Signs Date Time Temp Pulse Resp B/P (MAP) Pulse Ox O2 Delivery O2 Flow Rate FiO2 08/04/20 04:00 94 Nasal Cannula 4.0 08/04/20 04:00 61 167/72 (103) 72 107/77 (87) 74 107/65 (79) 08/03/20 16:00 96.0 20 08/01/20 09:00 55 I&O- Last 24 Hours up to 6 AM 08/04/20 06:00 Intake Total 1810 ml Output Total 1150 ml Balance 660 ml BEVERLEY LAINEZ MD Aug 04, 2020 08:50
[2020-08-04] MEDS: DOCUSATE SODIUM 100MG CAPSULE PO SCH ×2 (09:00→20:13)
[2020-08-04] MEDS: APIXABAN 5 MG TAB (ELIQUIS) PO SCH ×2 (09:19→20:14)
[2020-08-04] MEDS: dexameTHASONE 4 MG/ML 1ML VIAL (J1100 PER 1MG) IV SCH (09:19)
[2020-08-04] MEDS: FLECAINIDE 50MG TABLET PO SCH ×2 (09:20→20:14)
[2020-08-04] MEDS: ATORVASTATIN 20 MG TAB PO SCH (20:14)
[2020-08-04] MEDS: PANTOPRAZOLE 40MG TAB (PROTONIX) PO SCH (20:14)
[2020-08-05] VITALS (8 sets, daily range): BP systolic 104–161; BP diastolic 57–75; O2SAT 88–98
[2020-08-05 07:56] LABS: HEMATOCRIT 35.9 % (42.0-52.0); HEMOGLOBIN 12.6 g/dl (13.5-17.5); MEAN CORPUSCULAR HEMOGLOBIN 31.1 pg (27.0-33.0); MEAN CORPUSCULAR HGB CONC 35.1 g/dl (32.0-36.5); MEAN CORPUSCULAR VOLUME 88.6 fl (80.0-96.0); PLATELET COUNT, AUTOMATED 167 10^3/uL (150-450); RED BLOOD COUNT 4.05 10^6/uL (4.30-6.10); WHITE BLOOD COUNT 11.6 10^3/uL (4.0-10.0)
[2020-08-05] MEDS: APIXABAN 5 MG TAB (ELIQUIS) PO SCH ×2 (08:16→20:36)
[2020-08-05] MEDS: FLECAINIDE 50MG TABLET PO SCH ×2 (08:16→20:35)
[2020-08-05] MEDS: dexameTHASONE 4 MG/ML 1ML VIAL (J1100 PER 1MG) IV SCH (08:17)
[2020-08-05] MEDS: DOCUSATE SODIUM 100MG CAPSULE PO SCH ×2 (08:17→20:36)
[2020-08-05 08:21] LABS: ALBUMIN 2.3 GM/DL (3.2-5.2); ALT/SGPT 30 U/L (12-78); BILIRUBIN,TOTAL 0.7 MG/DL (0.2-1.0); BLOOD UREA NITROGEN 20 MG/DL (7-18); CALCIUM LEVEL 7.7 MG/DL (8.8-10.2); CARBON DIOXIDE LEVEL 26 MEQ/L (21-32); CHLORIDE LEVEL 102 MEQ/L (98-107); CREATININE FOR GFR 0.75 MG/DL (0.70-1.30); FERRITIN 803 NG/ML (26-388); GLOMERULAR FILTRATION RATE > 60.0 (>42); GLUCOSE, FASTING 123 MG/DL (70-100); POTASSIUM SERUM 4.2 MEQ/L (3.5-5.1); SODIUM LEVEL 135 MEQ/L (136-145); TOTAL PROTEIN 5.3 GM/DL (6.4-8.2)
--- NOTE | 2020-08-05 09:10 | IPNPDOC ---
Text Note Date of Service The patient was seen on 08/05/20. NOTE Subjective: Patient is a 74-year-old male with a PMHx of Atrial fibrillation (s/p pacemaker, on Eliquis), HTN, GERD, who was originally admitted for COVID-19 infection with possible superimposed bacterial infection. Patient had developed RVR with hypoxia during hospitalist. Patient was seen and examined at the bedside. Patient has reported that he has not experienced any further diarrhea, no abdominal pain, nausea, vomiting. His breathing is doing better, but still reports a mild cough. No chest pain or palpitations. Objective: Vitals (See below) General: Patient is sitting up in bed, appears comfortable, in no acute distress, awake, alert and fully oriented HEENT: Normocephalic and atraumatic CVS: +S1S2 Lungs: There appears to be fair air entry bilaterally without any evidence of wheezing, crackles or rhonchi Abdomen: Again, his abdomen remains completely soft, nondistended, nontender, no rigidity or rebound is noted Extremities: Lower extremities are free of any pitting edema Imaging: CXR 07/26: Possible infiltrate right mid lung field. Otherwise no acute disease.. Abdomen XR 07/27: Unremarkable portable KUB. No evidence of obstruction. Echocardiogram: ordered 2D echo on 07/27/20. 1. Normal left ventricular size, wall thickness, and low-normal global left ventricular systolic function. The estimated left ventricular systolic ejection fraction is 50% to 55%. 2. Normal left atrium. Normal right atrium and right ventricle. 3. The atrial septum appeared to be normal without evidence of defect or shunt. 4. Normal aortic root. 5. No pericardial effusion seen. 6. Mildly calcified aortic valve with normal leaflet excursion. Normal mitral valve, tricuspid valve, and pulmonic valve. The proximal pulmonary artery branches were not well visualized. 7. The inferior vena cava was not well visualized. Doppler detects mild aortic regurgitation, trace pulmonic regurgitation. Could not calculate the pulmonary artery systolic pressure. Abnormal relaxation pattern was noted across the mitral valve leaflets, as well as the mitral valve annulus consistent with features of grade 1 left ventricular diastolic dysfunction. IMPRESSION: 1. Low normal global left ventricular systolic function. There are some features of a left ventricular diastolic dysfunction manifested by abnormal relaxation, grade 1. 2. Aortic valve sclerosis with mild aortic regurgitation, but no aortic stenosis. Assessment and plan: Acute hypoxic respiratory failure - likely 2/2 COVID-19 pneumonia, possible 2/2 PE, possibly 2/2 superimposed bacterial infection - Patient reports that he is still experiencing a mild cough - Has remained stable on 4 L of nasal cannula oxygen - COVID19 positive 07/26/20 - Inflammatory markers stable/improving this morning - c/w Dexamethasone (Day #9) - s/p Remdesivir (5 day course) - s/p Ceftriaxone and Flagyl (Completed 8 day course) Questionable PEs - No large PEs noted, but small peripheral PEs could not be ruled out - on imaging completed at [place] - c/w Eliquis A. fib - Currently is rate controlled - s/p pacemaker - c/w rate and rhythm control with flecainide - Metoprolol on hold (re: Orthostatic hypotension) - c/w full anticoagulation with eliquis s/p Abdominal pain 2/2 possible diverticulitis - Reports resolution of diarrhea - Leukocytosis persists; but CRP trending down - s/p Ceftriaxone and Flagyl (See above) - Tolerating PO diet; fully advanced - c/w Loperamide PRN HTN - Orthostatic hypotension - improved; remains asymptomatic - s/p Losartan and Metoprolol - s/p IV fluid hydration DLP - c/w Atorvastatin Dark stools - Occult blood negative - Hemoglobin has remained stable Low mood - Denies SI Insomnia - c/w Ramelteon GI prophylaxis - c/w Protonix DVT prophylaxis - c/w Eliquis Disposition: - Pending clinical improvement - Patient is seeking home with services - c/w PT and OT VS,Lynn, I+O VS, Lynn, I+O Laboratory Tests 08/05/20 07:41 Vital Signs Date Time Temp Pulse Resp B/P (MAP) Pulse Ox O2 Delivery O2 Flow Rate FiO2 08/05/20 08:00 96.4 63 20 104/57 (73) 90 High Flow Cannula 4.0 08/01/20 09:00 55 I&O- Last 24 Hours up to 6 AM 08/05/20 06:00 Intake Total 1720 ml Output Total 2000 ml Balance -280 ml BEVERLEY LAINEZ MD Aug 05, 2020 09:10
[2020-08-05] MEDS: NS 1,000 ML IV SCH ×2 (10:18→22:45)
[2020-08-05] MEDS ORDERED: SIMETHICONE 80MG CHEW TAB PO PRN (10:20)
[2020-08-05] MEDS: PANTOPRAZOLE 40MG TAB (PROTONIX) PO SCH (20:36)
[2020-08-05] MEDS: ATORVASTATIN 20 MG TAB PO SCH (20:36)
[2020-08-05] MEDS: RAMELTEON 8 MG TAB (ROZEREM) PO PRN (20:36)
[2020-08-05] MEDS: ACETAMINOPHEN TAB 650MG DOSE (2X325MG) PO PRN (20:36)
[2020-08-06] VITALS (9 sets, daily range): BP systolic 111–185; BP diastolic 59–95; O2SAT 95–97
[2020-08-06 07:14] LABS: BASO % 0.2 % (0.0-1.0); HEMATOCRIT 36.2 % (42.0-52.0); HEMOGLOBIN 12.7 g/dl (13.5-17.5); LYMPH # 0.6 10^3/uL (1.5-5.0); LYMPH % 5.7 % (24.0-44.0); MEAN CORPUSCULAR HEMOGLOBIN 31.6 pg (27.0-33.0); MEAN CORPUSCULAR HGB CONC 35.1 g/dl (32.0-36.5); MONO # 1.1 10^3/uL (0.0-0.8); MONO % 10.4 % (2.0-8.0); NEUTROPHILS # 8.6 10^3/uL (1.5-8.5); NEUTROPHILS % 81.8 % (36.0-66.0); PLATELET COUNT, AUTOMATED 185 10^3/uL (150-450); RED BLOOD COUNT 4.02 10^6/uL (4.30-6.10); WHITE BLOOD COUNT 10.5 10^3/uL (4.0-10.0)
[2020-08-06 07:43] LABS: ALBUMIN 2.2 GM/DL (3.2-5.2); ALT/SGPT 42 U/L (12-78); BILIRUBIN,TOTAL 0.7 MG/DL (0.2-1.0); BLOOD UREA NITROGEN 19 MG/DL (7-18); C REACTIVE PROTEIN QUANTITATIV 0.78 MG/DL (0.00-0.30); CALCIUM LEVEL 7.9 MG/DL (8.8-10.2); CARBON DIOXIDE LEVEL 25 MEQ/L (21-32); CHLORIDE LEVEL 102 MEQ/L (98-107); CREATININE FOR GFR 0.78 MG/DL (0.70-1.30); FERRITIN 847 NG/ML (26-388); GLOMERULAR FILTRATION RATE > 60.0 (>42); GLUCOSE, FASTING 133 MG/DL (70-100); POTASSIUM SERUM 4.4 MEQ/L (3.5-5.1); SODIUM LEVEL 135 MEQ/L (136-145); TOTAL PROTEIN 5.3 GM/DL (6.4-8.2)
--- NOTE | 2020-08-06 08:28 | IPNPDOC ---
Text Note Date of Service The patient was seen on 08/06/20. NOTE Subjective: Patient is a 74-year-old male with a PMHx of Atrial fibrillation (s/p pacemaker, on Eliquis), HTN, GERD, who was originally admitted for COVID-19 infection with possible superimposed bacterial infection. Patient had developed RVR with hypoxia during hospitalist. Patient was seen and examined at the bedside. Patient is seen sitting up in bed eating breakfast. Denies any chest pain or palpitations. Reports that his breathing is doing relatively the same. Reports a mild cough. Has not experience any nausea, vomiting, abdominal pain, did report 2 episodes of diarrhea yesterday evening. Denies any urinary discomfort. Objective: Vitals (See below) General: Sitting up in bed eating breakfast appears to be comfortable, is awake, alert and oriented x3 HEENT: NC, AT CVS: +S1S2 Lungs: Air entry appears to be fair bilaterally without any evidence of crackles, wheezing or rhonchi Abdomen: Nondistended, without tenderness, remained soft Extremities: No edema Imaging: CXR 07/26: Possible infiltrate right mid lung field. Otherwise no acute disease.. Abdomen XR 07/27: Unremarkable portable KUB. No evidence of obstruction. Echocardiogram: ordered 2D echo on 07/27/20. 1. Normal left ventricular size, wall thickness, and low-normal global left ventricular systolic function. The estimated left ventricular systolic ejection fraction is 50% to 55%. 2. Normal left atrium. Normal right atrium and right ventricle. 3. The atrial septum appeared to be normal without evidence of defect or shunt. 4. Normal aortic root. 5. No pericardial effusion seen. 6. Mildly calcified aortic valve with normal leaflet excursion. Normal mitral valve, tricuspid valve, and pulmonic valve. The proximal pulmonary artery branches were not well visualized. 7. The inferior vena cava was not well visualized. Doppler detects mild aortic regurgitation, trace pulmonic regurgitation. Could not calculate the pulmonary artery systolic pressure. Abnormal relaxation pattern was noted across the mitral valve leaflets, as well as the mitral valve annulus consistent with features of grade 1 left ventricular diastolic dysfunction. IMPRESSION: 1. Low normal global left ventricular systolic function. There are some features of a left ventricular diastolic dysfunction manifested by abnormal relaxation, grade 1. 2. Aortic valve sclerosis with mild aortic regurgitation, but no aortic stenosis. Assessment and plan: Acute hypoxic respiratory failure - likely 2/2 COVID-19 pneumonia, possible 2/2 PE, possibly 2/2 superimposed bacterial infection - Patient reports that his breathing is relatively unchanged compared to yesterday. Still reports a mild cough - Patient has remained on 4 L of nasal cannula oxygen over the last 24 hours; will continue to titrate as tolerated - COVID19 positive 07/26/20 - Inflammatory markers improving - c/w Dexamethasone (Day #10) - s/p Remdesivir (5 day course) - s/p Ceftriaxone and Flagyl (Completed 8 day course) Questionable PEs - No large PEs noted, but small peripheral PEs could not be ruled out - on imaging completed at [place] - c/w Eliquis A. fib - Currently is rate controlled - s/p pacemaker - c/w rate and rhythm control with flecainide - Metoprolol on hold (re: Orthostatic hypotension) - c/w full anticoagulation with eliquis s/p Abdominal pain 2/2 possible diverticulitis - 2 episodes of diarrhea yesterday evening - Leukocytosis / CRP improving - s/p Ceftriaxone and Flagyl (See above) - Tolerating PO diet; fully advanced - s/p Loperamide PRN HTN - Orthostatic hypotension - improving - s/p Losartan and Metoprolol - c/w IV fluid hydration DLP - c/w Atorvastatin Dark stools - Occult blood negative - Hemoglobin has remained stable Low mood - Has not experience any suicidal ideation Insomnia - c/w Ramelteon GI prophylaxis - c/w Protonix DVT prophylaxis - c/w Eliquis Disposition: - Pending clinical improvement - Patient is seeking home with services - c/w PT and OT VS,Lynn, I+O VS, Lynn, I+O Laboratory Tests 08/06/20 06:46 Vital Signs Date Time Temp Pulse Resp B/P (MAP) Pulse Ox O2 Delivery O2 Flow Rate FiO2 08/06/20 05:28 167/81 (109) 90 08/06/20 04:00 Nasal Cannula 4.0 08/06/20 04:00 98.8 74 20 08/01/20 09:00 55 I&O- Last 24 Hours up to 6 AM 08/06/20 06:00 Intake Total 3380 ml Output Total 1300 ml Balance 2080 ml BEVERLEY LAINEZ MD Aug 06, 2020 08:28
[2020-08-06] MEDS: FLECAINIDE 50MG TABLET PO SCH ×2 (08:50→20:24)
[2020-08-06] MEDS: dexameTHASONE 4 MG/ML 1ML VIAL (J1100 PER 1MG) IV SCH (08:50)
[2020-08-06] MEDS: DOCUSATE SODIUM 100MG CAPSULE PO SCH ×2 (08:50→20:24)
[2020-08-06] MEDS: APIXABAN 5 MG TAB (ELIQUIS) PO SCH ×2 (08:50→20:24)
[2020-08-06] MEDS ORDERED: LOPERAMIDE 2 MG CAPLET PO PRN (14:45)
[2020-08-06] MEDS: PANTOPRAZOLE 40MG TAB (PROTONIX) PO SCH (20:23)
[2020-08-06] MEDS: RAMELTEON 8 MG TAB (ROZEREM) PO PRN (20:23)
[2020-08-06] MEDS: ACETAMINOPHEN TAB 650MG DOSE (2X325MG) PO PRN (20:24)
[2020-08-06] MEDS: ATORVASTATIN 20 MG TAB PO SCH (20:24)
[2020-08-07] VITALS: O2SAT 98
[2020-08-07] MEDS: MAALOX 30 ML SUSP *UDC PO PRN (00:32)
[2020-08-07 04:00] VITALS: BP 177/90; O2SAT 97
[2020-08-07 07:47] LABS: BASO % 0.3 % (0.0-1.0); EOS % 0.1 % (0.0-3.0); HEMATOCRIT 40.1 % (42.0-52.0); HEMOGLOBIN 14.2 g/dl (13.5-17.5); LYMPH # 0.6 10^3/uL (1.5-5.0); LYMPH % 6.3 % (24.0-44.0); MEAN CORPUSCULAR HEMOGLOBIN 32.5 pg (27.0-33.0); MEAN CORPUSCULAR HGB CONC 35.4 g/dl (32.0-36.5); MEAN CORPUSCULAR VOLUME 91.8 fl (80.0-96.0); MONO # 1.1 10^3/uL (0.0-0.8); MONO % 11.2 % (2.0-8.0); NEUTROPHILS # 8.1 10^3/uL (1.5-8.5); NEUTROPHILS % 80.1 % (36.0-66.0); PLATELET COUNT, AUTOMATED 215 10^3/uL (150-450); RED BLOOD COUNT 4.37 10^6/uL (4.30-6.10); WHITE BLOOD COUNT 10.1 10^3/uL (4.0-10.0)
[2020-08-07 08:17] VITALS: BP 106/80
[2020-08-07] MEDS: dexameTHASONE 4 MG/ML 1ML VIAL (J1100 PER 1MG) IV SCH (08:17)
[2020-08-07] MEDS: APIXABAN 5 MG TAB (ELIQUIS) PO SCH (08:17)
[2020-08-07] MEDS: FLECAINIDE 50MG TABLET PO SCH (08:17)
[2020-08-07] MEDS: DOCUSATE SODIUM 100MG CAPSULE PO SCH (08:17)
[2020-08-07 08:26] LABS: ALBUMIN 2.5 GM/DL (3.2-5.2); ALT/SGPT 77 U/L (12-78); BILIRUBIN,TOTAL 0.7 MG/DL (0.2-1.0); BLOOD UREA NITROGEN 21 MG/DL (7-18); C REACTIVE PROTEIN QUANTITATIV 0.49 MG/DL (0.00-0.30); CALCIUM LEVEL 8.1 MG/DL (8.8-10.2); CARBON DIOXIDE LEVEL 30 MEQ/L (21-32); CHLORIDE LEVEL 99 MEQ/L (98-107); CREATININE FOR GFR 0.82 MG/DL (0.70-1.30); FERRITIN 1184 NG/ML (26-388); GLOMERULAR FILTRATION RATE > 60.0 (>42); GLUCOSE, FASTING 128 MG/DL (70-100); MAGNESIUM LEVEL 2.1 MG/DL (1.8-2.4); POTASSIUM SERUM 4.4 MEQ/L (3.5-5.1); SODIUM LEVEL 135 MEQ/L (136-145); TOTAL PROTEIN 5.8 GM/DL (6.4-8.2)
[2020-08-07] MEDS ORDERED: PRED10TA2 PO (09:26)
--- NOTE | 2020-08-07 12:16 | DS.PDOC ---
Discharge Summary General Date of Admission Jul 26, 2020 at 15:20 Date of Discharge 08/07/2020 Discharge Summary PROCEDURES PERFORMED DURING STAY: [None]. ADMITTING DIAGNOSES / DISCHARGE DIAGNOSES: Acute hypoxic respiratory failure - likely 2/2 COVID-19 pneumonia, possible 2/2 PE, less likely 2/2 superimposed bacterial infection Questionable PEs A. fib s/p Abdominal pain 2/2 possible diverticulitis HTN DLP Dark stools Low mood Insomnia GI prophylaxis DVT prophylaxis COMPLICATIONS/CHIEF COMPLAINT: Shortness of breath HISTORY OF PRESENT ILLNESS: Patient is a 74-year-old male with a PMHx of Atrial fibrillation (s/p pacemaker, on Eliquis), HTN, GERD, who was originally admitted for COVID-19 infection with possible superimposed bacterial infection. Patient had developed RVR with hypoxia during hospitalist. Patient was seen and examined at the bedside. Patient reports that his evening was uneventful. Denies any chest pain, shortness breath, palpitations. Has not experience any nausea, vomiting, abdominal pain. Reports a a BM this morning; improvement of diarrhea. No urinary discomfort. HOSPITAL COURSE: Acute hypoxic respiratory failure - likely 2/2 COVID-19 pneumonia, possible 2/2 PE, less likely 2/2 superimposed bacterial infection - Patient reports that his breathing is doing relatively better today - Patient has been transitioned down to 3 L of nasal cannula has been able to maintain saturations on 3 L - COVID19 positive 07/26/20 - Inflammatory markers continued to downtrend - c/w Dexamethasone (Day #10); will continue prednisone taper on discharge - s/p Remdesivir (5 day course) - s/p Ceftriaxone and Flagyl (Completed 8 day course) - Will have outpatient follow-up with primary care provider within the next 7 days - Patient has cleared physical therapy for discharge home with services Questionable PEs - No large PEs noted, but small peripheral PEs could not be ruled out - on imaging completed at [place] - c/w Eliquis A. fib - Currently is rate controlled - s/p pacemaker - c/w rate and rhythm control with flecainide - Metoprolol on hold (re: Orthostatic hypotension) - c/w full anticoagulation with eliquis s/p Abdominal pain 2/2 possible diverticulitis - Diarrhea has improved - Leukocytosis / CRP improving - s/p Ceftriaxone and Flagyl (See above) - Tolerating PO diet; fully advanced - s/p Loperamide PRN HTN - Orthostatic hypotension - improving - s/p Losartan and Metoprolol - c/w IV fluid hydration DLP - c/w Atorvastatin Dark stools - Occult blood negative - Hemoglobin has remained stable Low mood - Has not experienced any suicidal ideation Insomnia - c/w Ramelteon GI prophylaxis - c/w Protonix DVT prophylaxis - c/w Eliquis DISCHARGE MEDICATIONS: Please see below. ALLERGIES: Please see below. PHYSICAL EXAMINATION ON DISCHARGE: Vitals (See below) General: Patient is sitting up in bed, appears to be comfortable, no acute distress, is awake, alert and oriented to person, place and time HEENT: NC, AT CVS: +S1S2 Lungs: There appears to be fair air entry bilaterally without any evidence of wheezing, crackles or rhonchi Abdomen: Without distention or tenderness, remains soft Extremities: Lower extremities are free of any pitting edema LABORATORY DATA: Please see below. IMAGING: CXR 07/26: Possible infiltrate right mid lung field. Otherwise no acute disease.. Abdomen XR 07/27: Unremarkable portable KUB. No evidence of obstruction. Echocardiogram: ordered 2D echo on 07/27/20. 1. Normal left ventricular size, wall thickness, and low-normal global left ventricular systolic function. The estimated left ventricular systolic ejection fraction is 50% to 55%. 2. Normal left atrium. Normal right atrium and right ventricle. 3. The atrial septum appeared to be normal without evidence of defect or shunt. 4. Normal aortic root. 5. No pericardial effusion seen. 6. Mildly calcified aortic valve with normal leaflet excursion. Normal mitral valve, tricuspid valve, and pulmonic valve. The proximal pulmonary artery branches were not well visualized. 7. The inferior vena cava was not well visualized. Doppler detects mild aortic regurgitation, trace pulmonic regurgitation. Could not calculate the pulmonary artery systolic pressure. Abnormal relaxation pattern was noted across the mitral valve leaflets, as well as the mitral valve annulus consistent with features of grade 1 left ventricular diastolic dysfunction. IMPRESSION: 1. Low normal global left ventricular systolic function. There are some features of a left ventricular diastolic dysfunction manifested by abnormal relaxation, grade 1. 2. Aortic valve sclerosis with mild aortic regurgitation, but no aortic stenosis. ACTIVITY: [As tolerated]. DISCHARGE PLAN: Follow-up with primary care provider within the next 7 days Remain compliant with treatment plan and medications Return to the ER if you experience any problems DISPOSITION: Home with services DISCHARGE CONDITION: [Stable]. TIME SPENT ON DISCHARGE: 35 minutes. Vital Signs/I&Os Vital Signs Date Time Temp Pulse Resp B/P (MAP) Pulse Ox O2 Delivery O2 Flow Rate FiO2 08/07/20 08:17 96.1 62 18 106/80 (89) 91 Nasal Cannula 2.0 08/01/20 09:00 55 I&O- Last 24 Hours up to 6 AM 08/07/20 06:00 Intake Total 1170 ml Output Total 2000 ml Balance -830 ml Laboratory Data Labs 24H Laboratory Tests 2 08/07/20 07:05: Immature Granulocyte % (Auto) 2.0, Neutrophils (%) (Auto) 80.1H, Lymphocytes (%) (Auto) 6.3L, Monocytes (%) (Auto) 11.2H, Eosinophils (%) (Auto) 0.1, Basophils (%) (Auto) 0.3, Neutrophils # (Auto) 8.1, Lymphocytes # (Auto) 0.6L, Monocytes # (Auto) 1.1H, Eosinophils # (Auto) 0.0, Basophils # (Auto) 0.0, Nucleated Red Blood Cells % (auto) 0.0, Anion Gap 6L, Glomerular Filtration Rate > 60.0, Calcium Level 8.1L, Magnesium Level 2.1, Ferritin 1184H, Total Bilirubin 0.7, Aspartate Amino Transf (AST/SGOT) 66H, Alanine Aminotransferase (ALT/SGPT) 77, Alkaline Phosphatase 63, C-Reactive Protein, Quantitative 0.49H, Total Protein 5.8L, Albumin 2.5L, Albumin/Globulin Ratio 0.8 CBC/BMP Laboratory Tests 08/07/20 07:05 Microbiology Microbiology 07/31/20 Stool Occult Blood (AILYN) - Final, Complete Discharge Medications Scheduled Apixaban (Eliquis) 5 Mg Tablet, 5 MG PO BID, (Reported) Atorvastatin Calcium (Atorvastatin Calcium) 20 Mg Tablet, 20 MG PO QHS, (Reported) Flecainide Acetate (Flecainide Acetate) 100 Mg Tablet, 100 MG PO BID, (Reported) Pantoprazole Sodium (Pantoprazole Sodium) 40 Mg Tablet.dr, 40 MG PO QPM, (Reported) Prednisone (Prednisone) 10 Mg Tablet, 10 MG PO TAPER Take 4 tabs daily x 3 days, then 3 tabs daily x 3 days, then 2 tabs daily x 3 days, then 1 tab daily x 3 days and stop Allergies Coded Allergies: No Known Allergies (Unverified , 07/26/20) BEVERLEY LAINEZ MD Aug 07, 2020 12:16
== END 2020-08-07 15:09 | disposition home health service (06) | DRG 177 ==
LOC: M 4MAIN 15:20
PROVIDERS: ADMIT Family Medicine; ATTEND Internal Medicine
PROC: XW033E5 Introduction of Remdesivir Anti-infective into Peripheral Vein, Percutaneous Approach, New Technology Group 5 (ICD-10-PCS; principal; 2020-07-27)
PROC: 3E0333Z Introduction of Anti-inflammatory into Peripheral Vein, Percutaneous Approach (ICD-10-PCS; 2020-07-27)
DX: U07.1 COVID-19 (principal); J12.82 Pneumonia due to coronavirus disease 2019; J96.01 Acute respiratory failure with hypoxia; I26.99 Other pulmonary embolism without acute cor pulmonale; I48.91 Unspecified atrial fibrillation; I10 Essential (primary) hypertension; K44.9 Diaphragmatic hernia without obstruction or gangrene; K21.9 Gastro-esophageal reflux disease without esophagitis; Z95.0 Presence of cardiac pacemaker; Z79.01 Long term (current) use of anticoagulants; Z79.899 Other long term (current) drug therapy

== ENCOUNTER → 2021-11-06 | Outpatient (CLI) | payer MEDICARE ==
[~2021-11-06] MED LIST: ATOR1TAB21 PO; CEFT1INJ5 IV; ELIQ5TAB PO; FLEC1TAB PO; LEVOTAB10 PO; LOSA50TA28 PO; METO1TAB32 PO; NASA1SPR; PANT-23 PO; PRED10TA2 PO; [UNRECOGNIZED DRUG - CODE] IV
== END ==
LOC: M LABSMTC 11:27
PROVIDERS: ATTEND Anesthesiology
DX: Z01.818 Encounter for other preprocedural examination (principal); Z11.52 Encounter for screening for COVID-19

== ENCOUNTER 2021-11-08 10:29 | Day surgery (SDC) | payer MEDICARE ==
[~2021-11-08] VITALS: Ht 177.8 cm; Wt 96.5 kg
[2021-11-08] MEDS ORDERED: fentaNYL 100 MCG/2 ML INJECTION As Ordered ONE (12:05)
[2021-11-08] MEDS ORDERED: propofoL 200 MG/20 ML VIAL As Ordered ONE (12:05)
[2021-11-08] MEDS ORDERED: LIDOCAINE 2% 100MG/5ML SDV (FOR ANES.) As Ordered ONE (12:05)
[2021-11-08 12:50] VITALS: BP 159/89
== END 2021-11-08 13:02 | disposition home or self-care (01) ==
LOC: M OPP 10:29
PROVIDERS: ATTEND Internal Medicine Gastroenterology
DX: K29.60 Other gastritis without bleeding (principal); B37.81 Candidal esophagitis; K44.9 Diaphragmatic hernia without obstruction or gangrene; R13.10 Dysphagia, unspecified; I48.91 Unspecified atrial fibrillation; Z95.0 Presence of cardiac pacemaker; Z79.02 Long term (current) use of antithrombotics/antiplatelets; Z79.899 Other long term (current) drug therapy; Z86.16 Personal history of COVID-19
CPT/HCPCS: 43239; 88108; 88305; J3010

== ENCOUNTER → 2023-02-21 | Outpatient (REF) | payer MEDICARE ==
[~2023-02-21] MED LIST changes: +[UNRECOGNIZED DRUG - CODE] IV; -[UNRECOGNIZED DRUG - CODE] IV
== END ==
LOC: M LAB REF 20:28
PROVIDERS: ATTEND Physician Assistant
DX: R30.0 Dysuria (principal)